=== PATIENT | female | born 1945 | race African-American/Black ===

== ENCOUNTER 2017-10-09 11:58 | Inpatient (IN) | payer MEDICARE, OTHER ==
[2017-10-09] VITALS (8 sets, daily range): BP systolic 175–210; BP diastolic 83–99; PULSE 95–117; RESP 12–16; TEMP 99–99.1; O2SAT 93–100
[~2017-10-09] VITALS: Ht 177.8 cm; Wt 95.5 kg
[2017-10-09] MEDS ORDERED: SODIUM CHLOR 0.9% 1000 ML INJ 1,000 ML IV SCH (12:10)
[2017-10-09] MEDS ORDERED: METOCLOPRAMIDE HCL 10 MG/2 ML VIAL IV PUSH ONE (12:15)
[2017-10-09] MEDS ORDERED: MORPHINE SULFATE 4 MG/ML INJ IV PUSH ONE (12:15)
--- NOTE | 2017-10-09 12:21 | PD ---
HPI Chief Complaint: Abdominal Pain Time Seen by Provider: 12:05 Travel History International Travel<30 days: No Contact w/Intl Traveler<30days: No Traveled to known affect area: No History of Present Illness HPI 72-year-old female that presents to the ED for evaluation of abdominal pain. Per patient she has had this for about a week now. Per patient she feels like she has to go to the bathroom but she has not been able to get anything out for the past week. She is supposed to be on blood pressure medication but is not secondary to having lost her insurance and being changed with different insurance with any doctor. She does not know what she is to take them. She did have a colonoscopy about a year ago with no abnormal findings. She is has never had surgeries. She denies any trauma to the abdomen. Per patient she is even passing gas. She states the pain is 6 out of 10 especially in the lower abdomen is very tender to touch. She comes here because nothing has worked. Per patient she did try an enema about a week ago but has not taken anything since. No chest pain or shortness of breath. No urinary or bowel movement issues. PFSH Past Medical History Hypertension: Yes Past Surgical History Surgical History: No Previous Surgery Social History Alcohol Use: No Tobacco Use: No Substance Use: No Allergies-Medications (Allergen,Severity, Reaction): Coded Allergies: No Known Allergies (Verified Allergy, Unknown, 10/09/17) Reported Meds & Prescriptions Reported Meds & Active Scripts Active No Active Prescriptions or Reported Medications Review of Systems Except as stated in HPI: all other systems reviewed are Neg Physical Exam Narrative GENERAL: SKIN: Warm and dry. HEAD: Atraumatic. Normocephalic. EYES: Pupils equal and round. No scleral icterus. No injection or drainage. ENT: No nasal bleeding or discharge. Mucous membranes pink and moist. Tongue is midline. No uvula deviation. NECK: Trachea midline. No JVD. CARDIOVASCULAR: Regular rate and rhythm. No murmurs, S3, S4. RESPIRATORY: No accessory muscle use. Clear to auscultation. Breath sounds equal bilaterally. GASTROINTESTINAL: Abdomen soft, patient has significant abdominal pain on the lower abdomen bilaterally, nondistended. Hepatic and splenic margins not palpable. MUSCULOSKELETAL: Extremities without clubbing, cyanosis, or edema. No obvious deformities. Full range of motion of the upper and lower extremities bilaterally. 2+ pulses bilaterally. NEUROLOGICAL: Awake and alert. No obvious cranial nerve deficits. Motor grossly within normal limits. Five out of 5 muscle strength in the arms and legs. Normal speech. PSYCHIATRIC: Appropriate mood and affect; insight and judgment normal. Data Data Last Documented VS Vital Signs Date Time Temp Pulse Resp B/P (MAP) Pulse Ox O2 Delivery O2 Flow Rate FiO2 10/09/17 16:10 100 16 183/83 (116) Room Air 10/09/17 12:36 97 10/09/17 12:00 99.0 Orders Orders Complete Blood Count With Diff (10/09/17 12:10) Comprehensive Metabolic Panel (10/09/17 12:10) Lipase (10/09/17 12:10) Lactic Acid (10/09/17 12:10) Urinalysis - C+S If Indicated (10/09/17 12:10) Ct Abd/Pel W Iv Contrast(Rout) (10/09/17 12:10) Iv Access Insert/Monitor (10/09/17 12:10) Ecg Monitoring (10/09/17 12:10) Sodium Chlor 0.9% 1000 Ml Inj (Ns 1000 M (10/09/17 12:10) Electrocardiogram (10/09/17 12:10) Morphine Inj (Morphine Inj) (10/09/17 12:15) Metoclopramide Inj (Reglan Inj) (10/09/17 12:15) Sodium Chlor 0.9% 1000 Ml Inj (Ns 1000 M (10/09/17 13:15) Labetalol Inj (Trandate Inj) (10/09/17 13:30) Iohexol 350 Inj (Omnipaque 350 Inj) (10/09/17 15:11) Admit To Inpatient (10/09/17 ) Vital Signs (Adult) Q4H (10/09/17 16:09) Activity Oob Ad Maty (10/09/17 16:09) Diet Heart Healthy (10/09/17 Dinner) Sodium Chloride 0.9% Flush (Ns Flush) (10/09/17 16:15) Sodium Chloride 0.9% Flush (Ns Flush) (10/09/17 21:00) Basic Metabolic Panel (Bmp) (10/10/17 06:00) Complete Blood Count With Diff (10/10/17 06:00) Heparin Inj (Heparin Inj) (10/09/17 17:00) Naloxone Inj (Narcan Inj) (10/09/17 16:15) Magnesium Hydroxide Liq (Milk Of Magnesi (10/09/17 16:15) Sennosides (Senokot) (10/09/17 16:15) Bisacodyl Supp (Dulcolax Supp) (10/09/17 16:15) Lactulose Liq (Lactulose Liq) (10/09/17 16:15) Inpatient Certification (10/09/17 ) Labetalol Inj (Trandate Inj) (10/09/17 16:15) Clonidine (Catapres) (10/09/17 16:15) Amlodipine (Norvasc) (10/09/17 16:15) Consult Medical Oncology (10/09/17 ) Lactulose Liq (Lactulose Liq) (10/09/17 16:15) Admit Order (Ed Use Only) (10/09/17 16:16) Labs Laboratory Tests Test 10/09/17 12:24 10/09/17 12:30 10/09/17 14:20 White Blood Count 13.7 TH/MM3 Red Blood Count 4.30 MIL/MM3 Hemoglobin 8.0 GM/DL Hematocrit 26.6 % Mean Corpuscular Volume 61.9 FL Mean Corpuscular Hemoglobin 18.7 PG Mean Corpuscular Hemoglobin Concent 30.2 % Red Cell Distribution Width 21.2 % Platelet Count 542 TH/MM3 Mean Platelet Volume 8.0 FL Neutrophils (%) (Auto) 79.9 % Lymphocytes (%) (Auto) 11.7 % Monocytes (%) (Auto) 7.5 % Eosinophils (%) (Auto) 0.2 % Basophils (%) (Auto) 0.7 % Neutrophils # (Auto) 10.9 TH/MM3 Lymphocytes # (Auto) 1.6 TH/MM3 Monocytes # (Auto) 1.0 TH/MM3 Eosinophils # (Auto) 0.0 TH/MM3 Basophils # (Auto) 0.1 TH/MM3 CBC Comment DIFF FINAL Differential Comment Blood Urea Nitrogen 12 MG/DL Creatinine 1.25 MG/DL Random Glucose 115 MG/DL Total Protein 8.5 GM/DL Albumin 2.8 GM/DL Calcium Level 9.4 MG/DL Alkaline Phosphatase 71 U/L Aspartate Amino Transf (AST/SGOT) 66 U/L Alanine Aminotransferase (ALT/SGPT) 22 U/L Total Bilirubin 0.7 MG/DL Sodium Level 138 MEQ/L Potassium Level 4.4 MEQ/L Chloride Level 101 MEQ/L Carbon Dioxide Level 22.9 MEQ/L Anion Gap 14 MEQ/L Estimat Glomerular Filtration Rate 51 ML/MIN Lipase 139 U/L Lactic Acid Level 2.8 mmol/L Urine Color YELLOW Urine Turbidity HAZY Urine pH 6.0 Urine Specific [place] 1.004 Urine Protein NEG mg/dL Urine Glucose (UA) NEG mg/dL Urine Ketones NEG mg/dL Urine Occult Blood LARGE Urine Nitrite NEG Urine Bilirubin NEG Urine Urobilinogen LESS THAN 2 mg/dL Urine Leukocyte Esterase TRACE Urine RBC 15 /hpf Urine WBC 3 /hpf Urine Squamous Epithelial Cells 1 /hpf Urine Bacteria OCC /hpf Urine Mucus FEW /lpf Microscopic Urinalysis Comment CULT NOT INDICATED MDM Medical Decision Making Medical Screen Exam Complete: Yes Emergency Medical Condition: Yes Medical Record Reviewed: Yes Interpretation(s) CBC & BMP Diagram 10/09/17 12:24 Total Protein 8.5 H, Albumin 2.8 L, Calcium Level 9.4, Alkaline Phosphatase 71, Aspartate Amino Transf (AST/SGOT) 66 H, Alanine Aminotransferase (ALT/SGPT) 22, Total Bilirubin 0.7 Last Impressions Abdomen/Pelvis CT 10/09/17 1210 Signed Impressions: CONCLUSION: 1. 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 Questionable bony metastasis lower tho racic spine. 2. Mild bilateral hydronephrosis likely related to the pelvic mass. There is s ome free fluid in the pelvis. Differential Diagnosis Acute abdomen versus abdominal pain versus constipation versus impaction versus diverticulitis Narrative Course 72-year-old female that presents to the ED for evaluation of abdominal pain. Patient was properly examined and was found to have signs and symptoms consistent with abdominal pain. Labs and imaging order. Patient was given IV pain medications and fluids. Labs and imaging showed what appears to be a significant mass to her abdomen. Likely unfortunately malignant with likely metastasis to the liver and other organs from what the CT scan reads. She does have a UTI. At this time my attending Dr. Morrell evaluated the patient and recommends admission. My attending and myself spoke with the patient in length about the possible diagnosis and need for further management and treatment. I spoke with Dr. Dean who agrees to admission for further evaluation. Diagnosis Primary Impression: Pelvic mass Additional Impression: UTI (urinary tract infection) Qualified Codes: N30.00 - Acute cystitis without hematuria Admitting Information Admitting Physician Requests: Admit Scripts No Active Prescriptions or Reported Meds Brennan Brownlee Oct 09, 2017 12:21
[2017-10-09 12:41] LABS: AUTOMATED NEUTROPHIL # 10.9 TH/MM3 (1.8-7.7); BASOPHIL # 0.1 TH/MM3 (0-0.2); BASOPHIL % 0.7 % (0.0-2.0); EOSINOPHIL % 0.2 % (0.0-4.0); HEMATOCRIT 26.6 % (35.0-46.0); LYMPH % 11.7 % (9.0-44.0); LYMPHOCYTE # 1.6 TH/MM3 (1.0-4.8); MEAN CELL VOLUME 61.9 FL (80.0-100.0); MEAN CORPUSCULAR HEMOGLOBIN 18.7 PG (27.0-34.0); MEAN CORPUSCULAR HGB CONC 30.2 % (32.0-36.0); MONO % 7.5 % (0.0-8.0); NEUT % 79.9 % (16.0-70.0); PLATELET COUNT 542 TH/MM3 (150-450); RED CELL DISTRIBUTION WIDTH 21.2 % (11.6-17.2); WHITE BLOOD COUNT 13.7 TH/MM3 (4.0-11.0)
[2017-10-09 12:58] LABS: ALBUMIN 2.8 GM/DL (3.4-5.0); AST (GOT) 66 U/L (15-37); BICARBONATE 22.9 MEQ/L (21.0-32.0); BLOOD UREA NITROGEN 12 MG/DL (7-18); CALCIUM 9.4 MG/DL (8.5-10.1); CHLORIDE 101 MEQ/L (98-107); CREATININE 1.25 MG/DL (0.50-1.00); GLOMERULAR FILTRATION RATE 51 ML/MIN (>89); GLUCOSE,RANDOM 115 MG/DL (74-106); SODIUM (NA) 138 MEQ/L (136-145)
[2017-10-09 13:00] LABS: ALT (GPT) 22 U/L (10-53)
[2017-10-09 13:02] LABS: ALKALINE PHOSPHATASE 71 U/L (45-117); TOTAL BILIRUBIN ADULT 0.7 MG/DL (0.2-1.0); TOTAL PROTEIN 8.5 GM/DL (6.4-8.2)
[2017-10-09] MEDS ORDERED: SODIUM CHLOR 0.9% 1000 ML INJ 1,000 ML IV ONE (13:15)
[2017-10-09] MEDS ORDERED: LABETALOL HCL 100 MG/20 ML VIAL IV PUSH ONE (13:30)
[2017-10-09 14:42] LABS: BACTERIA, URINE OCC /hpf; BILIRUBIN, URINE NEG (NEG); BLOOD, URINE LARGE (NEG); GLUCOSE,URINE NEG (NEG); KETONE, URINE NEG (NEG); MUCUS URINE FEW /lpf (OCC); NITRITE,URINE NEG (NEG); SQUAMOUS EPITHELIAL CELL URINE 1 /hpf (0-5); URINE COLOR YELLOW (YELLW/STRAW); URINE LEUKOCYTE ESTERASE TRACE (NEG)
[2017-10-09] MEDS ORDERED: IOHEXOL 350 MG/ML 10 ML VIAL (for RAD DIAG) IVCONTRAST ONE (15:11)
--- NOTE | 2017-10-09 15:26 | RADRPT ---
EXAM DATE: 10/09/2017 3:12 PM EDT AGE/SEX: 72 years / Female INDICATIONS: Lower abdominal pain. CLINICAL DATA: This is the patient's initial encounter. Patient reports that signs and symptoms have been present for 1 week and indicates a pain score of 5/10. MEDICAL/SURGICAL HISTORY: Hypertension. None. ORAL CONTRAST: No oral contrast ingested. RADIATION DOSE: 16.20 CTDI (mGy) COMPARISON: No prior exams available for comparison. TECHNIQUE: Multiple contiguous axial images were obtained through the abdomen and pelvis following b olus infusion of 98 ml Omnipaque 350 (iohexol) nonionic water-soluble contrast as a single exam dos e. No oral contrast ingested. Using automated exposure control and adjustment of the mA and/or kV ac cording to patient size, the radiation dose was kept as low as reasonably achievable to obtain optima l diagnostic quality images. FINDINGS: There is a very large complex pelvic mass measuring up to 18.4 cm AP, 16.6 cm transverse and 22.2 cm cephalocaudad. Origin of the mass is not entirely clear. This could be uterine or ovarian in origin. Finding is worrisome for malignancy. There is a 4.3 cm presumed dilia metastasis in the aortocaval region on image #31. There is a 3.4 cm dilia mass just above the aortic arch location. 5.1 cm mass inferior right lobe liver is most charact eristic of hepatic metastasis. There are also nodules at both lung bases measuring up to 1.7 cm on the right characteristic of meta static disease there is mild bilateral hydronephrosis likely related to the pelvic mass. Spleen and a drenals and pancreas are unremarkable. Possible lytic changes lower thoracic spine that could be rela adair to metastatic disease. CONCLUSION: 1. 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 Que stionable bony metastasis lower thoracic spine. 2. Mild bilateral hydronephrosis likely related to the pelvic mass. There is some free fluid in the pelvis. Electronically signed by: Alberto Ivory MD 10/09/2017 3:25 PM EDT
--- NOTE | 2017-10-09 15:56 | PD ---
Physical Exam Date Seen by Provider: Oct 09, 2017 Time Seen by Provider: 12:30 Narrative I, Dr. Colin, have reviewed the advance practice practitioner's documentation and am in agreement, met with the patient face to face, made the diagnosis, and the medical decision making was done by me. *My assessment and Findings: Patient seen and evaluated with PA, please see PA notes for further details. Patient has been having abdominal pain, bloating, very constipated and cannot make a bowel movement, here because of difficulty making bowel movements, does not even remember when the last time was. On evaluation, abdomen is moderately distended, diffusely tender. She has not been vomiting, denies other issues. Laboratory Tests Test 10/09/17 12:24 10/09/17 12:30 10/09/17 14:20 White Blood Count 13.7 TH/MM3 (4.0-11.0) Hemoglobin 8.0 GM/DL (11.6-15.3) Hematocrit 26.6 % (35.0-46.0) Mean Corpuscular Volume 61.9 FL (80.0-100.0) Mean Corpuscular Hemoglobin 18.7 PG (27.0-34.0) Mean Corpuscular Hemoglobin Concent 30.2 % (32.0-36.0) Red Cell Distribution Width 21.2 % (11.6-17.2) Platelet Count 542 TH/MM3 (150-450) Neutrophils (%) (Auto) 79.9 % (16.0-70.0) Neutrophils # (Auto) 10.9 TH/MM3 (1.8-7.7) Monocytes # (Auto) 1.0 TH/MM3 (0-0.9) Creatinine 1.25 MG/DL (0.50-1.00) Random Glucose 115 MG/DL (74-106) Total Protein 8.5 GM/DL (6.4-8.2) Albumin 2.8 GM/DL (3.4-5.0) Aspartate Amino Transf (AST/SGOT) 66 U/L (15-37) Estimat Glomerular Filtration Rate 51 ML/MIN (>89) Lactic Acid Level 2.8 mmol/L (0.4-2.0) Urine Turbidity HAZY (CLEAR) Urine Occult Blood LARGE (NEG) Urine Leukocyte Esterase TRACE (NEG) Urine RBC 15 /hpf (0-3) Urine Bacteria OCC /hpf (NONE) Urine Mucus FEW /lpf (OCC) Last 24 hours Impressions Abdomen/Pelvis CT 10/09/17 1210 Signed Impressions: CONCLUSION: 1. 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 Questionable bony metastasis lower tho racic spine. 2. Mild bilateral hydronephrosis likely related to the pelvic mass. There is s ome free fluid in the pelvis. Lab work shows that she has elevated white blood cell counts, lactate is elevated, concerning for underlying infection. CAT scan was ordered and instead shows a complex large pelvic mass measuring 22 cm concerning for [employer] malignancy with metastases to liver and lung. It is also obstructing both ureters, causing hydronephrosis bilaterally. At this point, considering the symptoms and findings, plan would be to admit the patient for further workup as well as treatment of pain and UTI. Data Data Last Documented VS Vital Signs Date Time Temp Pulse Resp B/P (MAP) Pulse Ox O2 Delivery O2 Flow Rate FiO2 10/09/17 12:36 104 12 198/89 (125) 97 Room Air 10/09/17 12:00 99.0 Orders Orders Complete Blood Count With Diff (10/09/17 12:10) Comprehensive Metabolic Panel (10/09/17 12:10) Lipase (10/09/17 12:10) Lactic Acid (10/09/17 12:10) Urinalysis - C+S If Indicated (10/09/17 12:10) Ct Abd/Pel W Iv Contrast(Rout) (10/09/17 12:10) Iv Access Insert/Monitor (10/09/17 12:10) Ecg Monitoring (10/09/17 12:10) Sodium Chlor 0.9% 1000 Ml Inj (Ns 1000 M (10/09/17 12:10) Electrocardiogram (10/09/17 12:10) Morphine Inj (Morphine Inj) (10/09/17 12:15) Metoclopramide Inj (Reglan Inj) (10/09/17 12:15) Sodium Chlor 0.9% 1000 Ml Inj (Ns 1000 M (10/09/17 13:15) Labetalol Inj (Trandate Inj) (10/09/17 13:30) Iohexol 350 Inj (Omnipaque 350 Inj) (10/09/17 15:11) Labs Laboratory Tests Test 10/09/17 12:24 10/09/17 12:30 10/09/17 14:20 White Blood Count 13.7 TH/MM3 Red Blood Count 4.30 MIL/MM3 Hemoglobin 8.0 GM/DL Hematocrit 26.6 % Mean Corpuscular Volume 61.9 FL Mean Corpuscular Hemoglobin 18.7 PG Mean Corpuscular Hemoglobin Concent 30.2 % Red Cell Distribution Width 21.2 % Platelet Count 542 TH/MM3 Mean Platelet Volume 8.0 FL Neutrophils (%) (Auto) 79.9 % Lymphocytes (%) (Auto) 11.7 % Monocytes (%) (Auto) 7.5 % Eosinophils (%) (Auto) 0.2 % Basophils (%) (Auto) 0.7 % Neutrophils # (Auto) 10.9 TH/MM3 Lymphocytes # (Auto) 1.6 TH/MM3 Monocytes # (Auto) 1.0 TH/MM3 Eosinophils # (Auto) 0.0 TH/MM3 Basophils # (Auto) 0.1 TH/MM3 CBC Comment DIFF FINAL Differential Comment Blood Urea Nitrogen 12 MG/DL Creatinine 1.25 MG/DL Random Glucose 115 MG/DL Total Protein 8.5 GM/DL Albumin 2.8 GM/DL Calcium Level 9.4 MG/DL Alkaline Phosphatase 71 U/L Aspartate Amino Transf (AST/SGOT) 66 U/L Alanine Aminotransferase (ALT/SGPT) 22 U/L Total Bilirubin 0.7 MG/DL Sodium Level 138 MEQ/L Potassium Level 4.4 MEQ/L Chloride Level 101 MEQ/L Carbon Dioxide Level 22.9 MEQ/L Anion Gap 14 MEQ/L Estimat Glomerular Filtration Rate 51 ML/MIN Lipase 139 U/L Lactic Acid Level 2.8 mmol/L Urine Color YELLOW Urine Turbidity HAZY Urine pH 6.0 Urine Specific [place] 1.004 Urine Protein NEG mg/dL Urine Glucose (UA) NEG mg/dL Urine Ketones NEG mg/dL Urine Occult Blood LARGE Urine Nitrite NEG Urine Bilirubin NEG Urine Urobilinogen LESS THAN 2 mg/dL Urine Leukocyte Esterase TRACE Urine RBC 15 /hpf Urine WBC 3 /hpf Urine Squamous Epithelial Cells 1 /hpf Urine Bacteria OCC /hpf Urine Mucus FEW /lpf Microscopic Urinalysis Comment CULT NOT INDICATED MDM Medical Record Reviewed: Yes Supervised Visit with JUAN CARLOS: Yes Diagnosis Primary Impression: Pelvic mass Additional Impressions: UTI (urinary tract infection) Leukocytosis Admitting Information Admitting Physician Requests: Admit Scripts No Active Prescriptions or Reported Meds Afsaneh Colin MD Oct 09, 2017 15:56
[2017-10-09] MEDS ORDERED: MAGNESIUM HYDROXIDE SUSP 30 ML CUP PO PRN (16:15)
[2017-10-09] MEDS ORDERED: SODIUM CHLORIDE 0.9% FLUSH 10 ML FLUSH IV FLUSH PRN (16:15)
[2017-10-09] MEDS ORDERED: LABETALOL HCL 100 MG/20 ML VIAL IV PUSH PRN (16:15)
[2017-10-09] MEDS ORDERED: BISACODYL 10 MG SUPP RECTAL PRN (16:15)
[2017-10-09] MEDS ORDERED: LACTULOSE SYRUP 20 GM/30 ML CUP PO PRN (16:15)
[2017-10-09] MEDS ORDERED: SENNOSIDES 8.6 MG TAB PO PRN (16:15)
[2017-10-09] MEDS ORDERED: NALOXONE HCL 0.4 MG/ML AMP IV PUSH PRN (16:15)
[2017-10-09] MEDS ORDERED: ACETAMINOPHEN/HYDROcodone 325 MG/5 MG TAB PO PRN (16:45)
[2017-10-09] MEDS ORDERED: MORPHINE SULFATE 4 MG/ML INJ IV PUSH PRN (16:45)
[2017-10-09] MEDS: HEPARIN SODIUM - SQ 10,000 UNITS/ML VIAL SQ SCH (17:11)
[2017-10-09] MEDS: amLODIPine BESYLATE 5 MG TAB PO SCH (17:13)
--- NOTE | 2017-10-09 17:19 | HHI.HP ---
[facility] Service [facility] Primary Care Physician No Primary Care Physician Admission Diagnosis acute mass to the abdomen with mets, hydronephrosis, obstructed GI t Diagnoses: (1) Pelvic mass Diagnosis: Principal (2) Abdominal pain Diagnosis: Principal (3) Hypertensive urgency Diagnosis: Secondary (4) Post-menopausal bleeding Diagnosis: Secondary (5) Leukocytosis Diagnosis: Secondary Chief Complaint: "Pain in my abdomen" Travel History International Travel<30 Days: No Contact w/Intl Traveler <30 Da: No Traveled to Known Affected Are: No Sepsis Criteria SIRS Criteria (2 or more): Heart rate over 90, WBC > 85296, < 4000 or > 10% bands Sepsis Criteria (SIRS+source): Infect source susp/known Severe Sepsis (+one): Lactate >2 History of Present Illness 72-year-old female with PMH significant for HTN who presents to the ED with complaints of constipation, abdominal pain and poor appetite since the beginning of September. Patient is seen and examined in ED with daughter at bedside. Patient reports that the pain is located in her lower abdomen and rates this pain 10/10 describes it as a dull pain that is on and off, movement will make pain worse, nothing makes pain better. She has not tried anything to help alleviate this pain. Reports poor appetite, but has been able to drink with no issues, has not had a BM since September, she is not passing gas either per patient. She has not noticed and abdominal distention or enlargement, denies any weight gain or loss. She has been urinating with no issues, denies dysuria or hematuria. She does report postmenopausal bleeding that has been ongoing, she is unable to states for how long. She endorses night sweats, denies any dizziness, lightheadedness, SOB, cough, or chest pain. She was previously seen by [facility], however the last time she was seen by them was in March of 2017, she was on BP medication then however wanted to try natural remedies therefore discontinued her prescription medications. Review of Systems Except as stated in HPI: all other systems reviewed are Neg Past Family Social History Past Medical History HTN Past Surgical History Denies Reported Medications Reported Meds & Active Scripts Active No Active Prescriptions or Reported Medications Allergies: Coded Allergies: No Known Allergies (Verified Allergy, Unknown, 10/09/17) Family History Patient denies any knowledge of family medical history Social History Denies any tobacco, alcohol, or illicit drug use. Physical Exam Vital Signs Vital Signs Date Time Temp Pulse Resp B/P (MAP) Pulse Ox O2 Delivery O2 Flow Rate FiO2 10/09/17 16:10 100 16 183/83 (116) Room Air 10/09/17 12:36 104 12 198/89 (125) 97 Room Air 10/09/17 12:00 99.0 117 16 210/99 (136) 100 Physical Exam GENERAL: This is a well-nourished, well-developed patient, AA female in no apparent distress. SKIN: No rashes, ecchymoses or lesions. Cool and dry. HEAD: Atraumatic. Normocephalic. No temporal or scalp tenderness. EYES: Pupils equal round and reactive. Extraocular motions intact. No scleral icterus. No injection or drainage. ENT: Nose without bleeding, purulent drainage. Throat without erythema or exudate. Uvula midline. Airway patent. NECK: Trachea midline. No JVD. Supple, nontender. CARDIOVASCULAR: Regular rate and rhythm, no gallops or rubs. 2/6 murmur. RESPIRATORY: Clear to auscultation. Breath sounds equal bilaterally. No wheezes , rales, or rhonchi. GASTROINTESTINAL: Abdomen mildly distended, firm, tender throughout with hypoactive bowel sounds. MUSCULOSKELETAL: Extremities without clubbing, cyanosis, or edema. No joint tenderness, effusion, or edema noted. No calf tenderness. NEUROLOGICAL: Awake and alert, oriented with some forgetfulness. Cranial nerves II through XII grossly intact. Motor and sensory grossly within normal limits. Five out of 5 muscle strength in all muscle groups. Normal speech. Laboratory Laboratory Tests Test 10/09/17 12:24 10/09/17 12:30 10/09/17 14:20 White Blood Count 13.7 Red Blood Count 4.30 Hemoglobin 8.0 Hematocrit 26.6 Mean Corpuscular Volume 61.9 Mean Corpuscular Hemoglobin 18.7 Mean Corpuscular Hemoglobin Concent 30.2 Red Cell Distribution Width 21.2 Platelet Count 542 Mean Platelet Volume 8.0 Neutrophils (%) (Auto) 79.9 Lymphocytes (%) (Auto) 11.7 Monocytes (%) (Auto) 7.5 Eosinophils (%) (Auto) 0.2 Basophils (%) (Auto) 0.7 Neutrophils # (Auto) 10.9 Lymphocytes # (Auto) 1.6 Monocytes # (Auto) 1.0 Eosinophils # (Auto) 0.0 Basophils # (Auto) 0.1 CBC Comment DIFF FINAL Differential Comment Blood Urea Nitrogen 12 Creatinine 1.25 Random Glucose 115 Total Protein 8.5 Albumin 2.8 Calcium Level 9.4 Alkaline Phosphatase 71 Aspartate Amino Transf (AST/SGOT) 66 Alanine Aminotransferase (ALT/SGPT) 22 Total Bilirubin 0.7 Sodium Level 138 Potassium Level 4.4 Chloride Level 101 Carbon Dioxide Level 22.9 Anion Gap 14 Estimat Glomerular Filtration Rate 51 Lipase 139 Lactic Acid Level 2.8 Urine Color YELLOW Urine Turbidity HAZY Urine pH 6.0 Urine Specific [place] 1.004 Urine Protein NEG Urine Glucose (UA) NEG Urine Ketones NEG Urine Occult Blood LARGE Urine Nitrite NEG Urine Bilirubin NEG Urine Urobilinogen LESS THAN 2 Urine Leukocyte Esterase TRACE Urine RBC 15 Urine WBC 3 Urine Squamous Epithelial Cells 1 Urine Bacteria OCC Urine Mucus FEW Microscopic Urinalysis Comment CULT NOT INDICATED Result Diagram: 10/09/17 1224 10/09/17 1224 Imaging Last Impressions Abdomen/Pelvis CT 10/09/17 1210 Signed Impressions: CONCLUSION: 1. 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 Questionable bony metastasis lower tho racic spine. 2. Mild bilateral hydronephrosis likely related to the pelvic mass. There is s ome free fluid in the pelvis. Caprini VTE Risk Assessment Caprini VTE Risk Assessment: Mod/High Risk (score >= 2) Caprini Risk Assessment Model Point Value = 1 Point Value = 2 Point Value = 3 Point Value = 5 Age 41-60 Minor surgery BMI > 25 kg/m2 Swollen legs Varicose veins or History of unexplained or recurrent spontaneous Oral contraceptives or hormone replacement Sepsis (< 1 month) Serious lung disease, including pneumonia (< 1 month) Abnormal pulmonary function Acute myocardial infarction Congestive heart failure (< 1 month) History of inflammatory bowel disease Medical patient at bed rest Age 61-74 Arthroscopic surgery Major open surgery (> 45 min) Laparoscopic surgery (> 45 min) Malignancy Confined to bed (> 72 hours) Immobilizing plaster cast Central venous access Age >= 75 History of VTE Family history of VTE Factor V Leiden Prothrombin 47101A Lupus anticoagulant Anticardiolipin antibodies Elevated serum homocysteine Heparin-induced thrombocytopenia Other congenital or acquired thrombophilia Stroke (< 1 month) Elective arthroplasty Hip, pelvis, or leg fracture Acute spinal cord injury (< 1 month) Prophylaxis Regimen Total Risk Factor Score Risk Level Prophylaxis Regimen 0-1 Low Early ambulation 2 Moderate Order ONE of the following: *Sequential Compression Device (SCD) *Heparin 5000 units SQ BID 3-4 Higher Order ONE of the following medications: *Heparin 5000 units SQ TID *Enoxaparin/Lovenox 40 mg SQ daily (WT < 150 kg, CrCl > 30 mL/min) *Enoxaparin/Lovenox 30 mg SQ daily (WT < 150 kg, CrCl > 10-29 mL/min) *Enoxaparin/Lovenox 30 mg SQ BID (WT < 150 kg, CrCl > 30 mL/min) AND/OR *Sequential Compression Device (SCD) 5 or more Highest Order ONE of the following medications: *Heparin 5000 units SQ TID (Preferred with Epidurals) *Enoxaparin/Lovenox 40 mg SQ daily (WT < 150 kg, CrCl > 30 mL/min) *Enoxaparin/Lovenox 30 mg SQ daily (WT < 150 kg, CrCl > 10-29 mL/min) *Enoxaparin/Lovenox 30 mg SQ BID (WT < 150 kg, CrCl > 30 mL/min) AND *Sequential Compression Device (SCD) Assessment and Plan Assessment and Plan 72--year-old -Scottish female who presents to the emergency department with complaints of abdominal pain and constipation. Pelvic mass Abdominal pain Constipation-likely due to mass size in pelvis Leukocytosis- possibly stress related -CT of the abdomen and pelvis reviewed, large complex pelvic mass measuring 22cm in length characteristic of uterine or ovarian malignancy with retroperitoneal nodule metastasis, liver metastasis and bilateral lung metastasis. Questionable bony metastasis in the lower thoracic spine, mild bilateral hydronephrosis likely related to pelvic mass, some free fluid in the pelvis. - CBC with mild leukocytosis, anemia, CMP with mildly elevated creatinine and lactic acid, recheck in 6hrs - Recheck CBC in the AM - Consult medical oncology for further recommendations, appreciate assistance - Pain management with p.o. [place] and IV Morphine for breakthrough pain - Daily Lactulose Abnormal Creatinine - Mild hydronephrosis noted on abd/pelvis CT, UA negative for culture - Received 2L NS in the ER - Monitor renal function if worse consider nephro consult for nephrostomy tubes - Encourage po intake Microcytic anemia - Likely secondary to chronic postmenopausal bleeding - Check iron studies Hypertension urgency-BP on admission 210/99 - Hx of HTN non-compliant with medications - Patient received Labetalol 5mg IV in ER, BP improved 180's/80's - Start PO Norvasc with first dose now - PRN Clonidine and Labetalol DVT prophylaxis- subq Heparin The exam, history, and the medical decision-making described in the above note were completed with the assistance of the mid-level provider. I reviewed and agree with the findings presented. I attest that I had a [id number] encounter with the patient on the same day, and personally performed and documented my assessment and findings in the medical record. Patient seen and examined. Has not had a normal bowel movement for the past month. Has been having some pellets. GENERAL: Elderly female. GASTROINTESTINAL: Large palpable abdominal mass, tender to palpation. Normal and active bowel sounds. MUSCULOSKELETAL: Extremities without cyanosis, 2+ bilateral lower extremity edema NEURO: Alert & Oriented x4 to person, place, time, situation. Moves all ext x4 PSYCH: Appropriate mood and affect. Plan document as above. Discussed with oncologist, Dr. Justice. Plan for CT- guided biopsy of the pelvic mass and [employer] oncology consult. Pain management. Code Status Full code, discussed with patient and daughter at bedside. Discussed Condition With Dr. Justice and ED physician. Physician Certification 2 Midnight Certification Type: Admission for Inpatient Services Order for Inpatient Services The services are ordered in accordance with Medicare regulations or non- Medicare payer requirements, as applicable. In the case of services not specified as inpatient-only, they are appropriately provided as inpatient services in accordance with the 2-midnight benchmark. Estimated LOS (days): 4 days is the estimated time the patient will need to remain in the hospital, assuming treatment plan goals are met and no additional complications. Post-Hospital Plan: Not yet determined Problem Qualifiers (1) Leukocytosis: Qualified Codes: D72.825 - Bandemia Germain Valle Oct 09, 2017 17:19 Chiara Suero MD Oct 09, 2017 18:21
[2017-10-09] MEDS: ACETAMINOPHEN/HYDROcodone 325 MG/7.5 MG TAB PO PRN (18:39)
[2017-10-09] MEDS: cloNIDine HCL 0.1 MG TAB PO PRN (18:39)
[2017-10-09] MEDS: LACTULOSE SYRUP 20 GM/30 ML CUP PO SCH (18:40)
--- NOTE | 2017-10-09 18:46 | RADRPT ---
EXAM DATE: 10/09/2017 6:23 PM EDT AGE/SEX: 72 years / Female INDICATIONS: Abdominal mass. CLINICAL DATA: This is the patient's initial encounter. Patient reports that signs and symptoms have been present for 1 day and indicates a pain score of 0/10. MEDICAL/SURGICAL HISTORY: Hypertension. None. RADIATION DOSE: 11.05 CTDI (mGy) COMPARISON: No prior exams available for comparison. TECHNIQUE: Multiple contiguous axial images were obtained through the chest without contrast. Image s were obtained in suspended respiration using multiple row detector helical technique. Using automa adair exposure control and adjustment of the mA and/or kV according to patient size, radiation dose was kept as low as reasonably achievable to obtain optimal diagnostic quality images. FINDINGS: There are numerous bilateral pulmonary nodules characteristic of pulmonary parenchymal metastatic dis ease. Nodules range from subcentimeter in size to 1.6 cm in the lingula and right middle lobe. No pat hologically enlarged lymph nodes are identified in the mediastinum. There is some faint lucencies in the thoracic spine inferiorly which are indeterminate for metastatic disease. See abdomen CT for find ings below the diaphragm. Note is made of bilateral hydronephrosis, moderate on the right and mild on the left. CONCLUSION: 1. Pulmonary parenchymal metastatic disease. No adenopathy or effusion. Electronically signed by: Alberto Ivory MD 10/09/2017 6:45 PM EDT
--- NOTE | 2017-10-09 18:53 | MB ---
cc: Marcell Justice MD, Richard MD DATE: 10/09/2017 CHIEF COMPLAINT: Large pelvic mass with probable metastatic disease. PATIENT PROFILE: The patient is a 72-year-old black female. She is single. She was on 2 previous occasions. She states that she is from her . She was born in [place], [place] and has lived in [place] for at least 40 years. She lives with her daughter. The patient does not work. She is retired. 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 She does not smoke. Alcohol consists of a rare glass of wine. HISTORY OF PRESENT ILLNESS: The patient is a 72-year-old female who has had hypertension. She has not seen a physician in quite a while. She did have a colonoscopy approximately a year ago. She does not remember who performed this, but she was told it was normal. She was well until the past 2-3 months when she developed discomfort in the lower abdominal and pelvic area. It became increasingly difficult for her to have bowel movements. The pain worsened. She lost her appetite and she lost an undefined amount of weight. Her daughter encouraged her to go to the emergency room and finally, because of the severity of the pain, she went to the emergency room today. She had a CT scan of the abdomen and pelvis performed with IV contrast today. The images were reviewed and are very telling. She has a large complex pelvic mass measuring up to 18.4 x 16.6 x 22 cm. The origin of the mass is unclear with possibilities being uterine or ovarian. There is a 4.3 cm presumed dilia metastases in the aortocaval region. There is a 3.4 cm dilia mass above the aortic bifurcation. There is a 5.1 cm mass involving the inferior right lobe of the liver, most characteristic of metastatic disease. There are also several nodules at the lung base with the largest measuring 1.7 cm. There is mild bilateral hydronephrosis. Other studies include a hemoglobin of 8, white count of 13,000, platelet count of 542,000. The RBC number is 4.3 and MCV is 61. A CMP on 10/09, creatinine 1.25, BUN 12, estimated GFR 51. Liver function tests normal, except for slight elevation of the AST to 66, total protein 8.5. PAST SURGICAL HISTORY: No previous surgeries. PAST MEDICAL HISTORY: Hypertension. MEDICATIONS PRIOR TO ADMISSION: None except for the use of laxatives. ALLERGIES: NONE. FAMILY HISTORY: Mother . Father of dementia at age 84. The patient has 2 brothers are living. Her sister is living. She has 3 daughters and 1 son. There is no history of uterine cancer or ovarian cancer. REVIEW OF SYSTEMS: VISION: She has glasses. There has been no change in her vision. Hearing is fine. CARDIOVASCULAR: No chest pain, palpitations. RESPIRATORY: No shortness of breath, cough. GASTROINTESTINAL: Notable for abdominal pain, constipation, weight loss, anorexia. There has been no blood in the stool. GENITOURINARY: Mild vaginal bleeding over the past month. MUSCULOSKELETAL: No bone pain. NEUROLOGIC: No focal weakness. SKIN: No problems. PSYCHIATRIC: No psychiatric problems. PHYSICAL EXAMINATION: GENERAL: Reveals a frightened female who appears uncomfortable. VITAL SIGNS: Blood pressure is 185/86, respiratory rate 16, pulse is 100. She is afebrile. O2 saturation on room air is 100%. HEENT: Head is normocephalic. Sclerae and conjunctivae are normal. Oropharynx is unremarkable. LYMPHS: There is no cervical, supraclavicular, axillary or inguinal adenopathy. BREASTS: Without masses. HEART: Regular rhythm. LUNGS: Clear, without rales, wheezes, or rhonchi. ABDOMEN: Markedly abnormal. There is a mass arising from the pelvis extending into the upper abdomen. It is firm, tender, huge and occupies most of the mid abdominal cavity and the entire pelvic region. EXTREMITIES: +1 edema with some mild stasis changes. MUSCULOSKELETAL: No bone pain. NEUROLOGIC: No weakness. SKIN: Normal. ASSESSMENT: The patient is a 72-year-old female who has a huge mass arising from the pelvis extending into the upper abdomen with what appears to be metastatic disease to the liver, pulmonary metastases, and dilia metastases. She had a colonoscopy a year ago. This is not the typical picture for ovarian cancer. 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 PLAN: 1. CT of the thorax without contrast. 2. CEA, CA-125. 3. It would be very easy to obtain a core needle biopsy of the abdominal pelvic mass. It is huge and presses up against the abdominal wall. 4. On Wednesday when Dr. Shah, who is a gynecologic oncologist, is back, a consultation will be placed. 5. The situation was reviewed with the patient and her daughter. They asked me if this is a serious problem and whether they should let the family know. I indicated that this is a very serious problem and the patient may want support from family. Orders have been written for CEA, CA-125, CT-guided needle biopsy of the abdominal pelvic mass and CT scan of the thorax without contrast. MD BRET Ta/ , 06:11 PM , 06:50 PM [email or web address]
[2017-10-09] MEDS: SODIUM CHLORIDE 0.9% FLUSH 10 ML FLUSH IV FLUSH SCH (21:27)
[2017-10-10] VITALS (18 sets, daily range): BP systolic 141–189; BP diastolic 76–91; PULSE 84–118; RESP 16–20; TEMP 97.9–99.7; O2SAT 93–100
[2017-10-10] MEDS: HEPARIN SODIUM - SQ 10,000 UNITS/ML VIAL SQ SCH ×3 (01:26→16:30)
[2017-10-10] MEDS: cefTRIAXone INJ 1,000 MG in SODIUM CHLORIDE 0.9% INJ 100 ML IV SCH (01:57)
[2017-10-10 04:09] LABS: AUTOMATED NEUTROPHIL # 10.3 TH/MM3 (1.8-7.7); BASOPHIL % 0.3 % (0.0-2.0); EOSINOPHIL # 0.1 TH/MM3 (0-0.4); EOSINOPHIL % 0.7 % (0.0-4.0); HEMATOCRIT 23.8 % (35.0-46.0); HEMOGLOBIN 7.1 GM/DL (11.6-15.3); LYMPH % 10.7 % (9.0-44.0); LYMPHOCYTE # 1.4 TH/MM3 (1.0-4.8); MEAN CORPUSCULAR HEMOGLOBIN 18.4 PG (27.0-34.0); MEAN PLATELET VOLUME 8.9 FL (7.0-11.0); MONO % 8.1 % (0.0-8.0); NEUT % 80.2 % (16.0-70.0); PLATELET COUNT 502 TH/MM3 (150-450); RED BLOOD COUNT 3.84 MIL/MM3 (4.00-5.30); RED CELL DISTRIBUTION WIDTH 21.5 % (11.6-17.2); WHITE BLOOD COUNT 12.8 TH/MM3 (4.0-11.0)
[2017-10-10 04:16] LABS: MEAN CORPUSCULAR HGB CONC 29.6 % (32.0-36.0)
[2017-10-10 04:28] LABS: CARCINOEMBRYONIC ANTIGEN 0.8 NG/ML (0.2-5.0)
[2017-10-10] MEDS: ACETAMINOPHEN/HYDROcodone 325 MG/7.5 MG TAB PO PRN ×2 (04:56→11:42)
[2017-10-10 05:05] LABS: CA 125 170.2 U/ML (0.0-30.2)
[2017-10-10 05:21] LABS: % SATURATION IRON PROFILE 6.6 % (20-50); BLOOD UREA NITROGEN 11 MG/DL (7-18); CALCIUM 8.3 MG/DL (8.5-10.1); CHLORIDE 104 MEQ/L (98-107); CREATININE 1.18 MG/DL (0.50-1.00); GLOMERULAR FILTRATION RATE 54 ML/MIN (>89); GLUCOSE,RANDOM 102 MG/DL (74-106); IRON (FE) 18 MCG/DL (50-170); SODIUM (NA) 140 MEQ/L (136-145); TOTAL IRON BINDING CAPACITY 272 MCG/DL (250-450)
[2017-10-10] MEDS ORDERED: diphenhydrAMINE HCL 25 MG CAP PO PRN (07:45)
[2017-10-10] MEDS ORDERED: SODIUM CHLOR 0.9% 250 ML INJ 250 ML IV ONE (08:00)
[2017-10-10] MEDS: LACTULOSE SYRUP 20 GM/30 ML CUP PO SCH (08:09)
[2017-10-10] MEDS: amLODIPine BESYLATE 5 MG TAB PO SCH (08:09)
--- NOTE | 2017-10-10 08:29 | PD.ONC.PN ---
Subjective Subjective Remarks T-max 99.7 overnight Patient reports she overall feels much better Currently denies pain She does endorse that she has had some vaginal bleeding over the last several months Denies any blood in her stool Objective Data Date Time Temp Pulse Resp B/P (MAP) Pulse Ox O2 Delivery O2 Flow Rate FiO2 10/10/17 07:00 110 10/10/17 04:53 99.7 98 17 164/85 (111) 97 10/10/17 04:00 92 10/10/17 01:25 169/81 (110) 10/10/17 00:15 99.3 97 16 172/79 (110) 93 10/10/17 00:00 94 10/09/17 21:14 99.1 96 16 175/85 (115) 93 10/09/17 20:00 95 10/09/17 17:26 100 16 185/86 (119) 100 Room Air 10/09/17 17:16 90 185/86 (119) 100 10/09/17 16:10 100 16 183/83 (116) Room Air 10/09/17 15:30 95 15 183/85 (117) 96 Room Air 10/09/17 12:36 104 12 198/89 (125) 97 Room Air 10/09/17 12:00 99.0 117 16 210/99 (136) 100 10/10/17 10/10/17 10/10/17 07:00 15:00 23:00 Intake Total 340 ml Balance 340 ml Result Diagram: 10/10/17 0308 10/10/17 0308 Laboratory Results Laboratory Tests Test 10/09/17 12:24 10/09/17 12:30 10/09/17 14:20 10/09/17 20:42 White Blood Count 13.7 TH/MM3 Red Blood Count 4.30 MIL/MM3 Hemoglobin 8.0 GM/DL Hematocrit 26.6 % Mean Corpuscular Volume 61.9 FL Mean Corpuscular Hemoglobin 18.7 PG Mean Corpuscular Hemoglobin Concent 30.2 % Red Cell Distribution Width 21.2 % Platelet Count 542 TH/MM3 Mean Platelet Volume 8.0 FL Neutrophils (%) (Auto) 79.9 % Lymphocytes (%) (Auto) 11.7 % Monocytes (%) (Auto) 7.5 % Eosinophils (%) (Auto) 0.2 % Basophils (%) (Auto) 0.7 % Neutrophils # (Auto) 10.9 TH/MM3 Lymphocytes # (Auto) 1.6 TH/MM3 Monocytes # (Auto) 1.0 TH/MM3 Eosinophils # (Auto) 0.0 TH/MM3 Basophils # (Auto) 0.1 TH/MM3 CBC Comment DIFF FINAL Differential Comment Blood Urea Nitrogen 12 MG/DL Creatinine 1.25 MG/DL Random Glucose 115 MG/DL Total Protein 8.5 GM/DL Albumin 2.8 GM/DL Calcium Level 9.4 MG/DL Alkaline Phosphatase 71 U/L Aspartate Amino Transf (AST/SGOT) 66 U/L Alanine Aminotransferase (ALT/SGPT) 22 U/L Total Bilirubin 0.7 MG/DL Sodium Level 138 MEQ/L Potassium Level 4.4 MEQ/L Chloride Level 101 MEQ/L Carbon Dioxide Level 22.9 MEQ/L Anion Gap 14 MEQ/L Estimat Glomerular Filtration Rate 51 ML/MIN Lipase 139 U/L Lactic Acid Level 2.8 mmol/L 2.0 mmol/L Urine Color YELLOW Urine Turbidity HAZY Urine pH 6.0 Urine Specific [place] 1.004 Urine Protein NEG mg/dL Urine Glucose (UA) NEG mg/dL Urine Ketones NEG mg/dL Urine Occult Blood LARGE Urine Nitrite NEG Urine Bilirubin NEG Urine Urobilinogen LESS THAN 2 mg/dL Urine Leukocyte Esterase TRACE Urine RBC 15 /hpf Urine WBC 3 /hpf Urine Squamous Epithelial Cells 1 /hpf Urine Bacteria OCC /hpf Urine Mucus FEW /lpf Microscopic Urinalysis Comment CULT NOT INDICATED Test 10/10/17 03:08 White Blood Count 12.8 TH/MM3 Red Blood Count 3.84 MIL/MM3 Hemoglobin 7.1 GM/DL Hematocrit 23.8 % Mean Corpuscular Volume 62.0 FL Mean Corpuscular Hemoglobin 18.4 PG Mean Corpuscular Hemoglobin Concent 29.6 % Red Cell Distribution Width 21.5 % Platelet Count 502 TH/MM3 Mean Platelet Volume 8.9 FL Neutrophils (%) (Auto) 80.2 % Lymphocytes (%) (Auto) 10.7 % Monocytes (%) (Auto) 8.1 % Eosinophils (%) (Auto) 0.7 % Basophils (%) (Auto) 0.3 % Neutrophils # (Auto) 10.3 TH/MM3 Lymphocytes # (Auto) 1.4 TH/MM3 Monocytes # (Auto) 1.0 TH/MM3 Eosinophils # (Auto) 0.1 TH/MM3 Basophils # (Auto) 0.0 TH/MM3 CBC Comment DIFF FINAL Differential Comment Blood Urea Nitrogen 11 MG/DL Creatinine 1.18 MG/DL Random Glucose 102 MG/DL Calcium Level 8.3 MG/DL Sodium Level 140 MEQ/L Potassium Level 3.8 MEQ/L Chloride Level 104 MEQ/L Carbon Dioxide Level 24.0 MEQ/L Anion Gap 12 MEQ/L Estimat Glomerular Filtration Rate 54 ML/MIN Iron Level 18 MCG/DL Total Iron Binding Capacity 272 MCG/DL Percent Iron Saturation 6.6 % Carcinoembryonic Antigen 0.8 NG/ML CA 125 Antigen 170.2 U/ML Culture Results Microbiology Date/Time Source Procedure Growth Status 10/10/17 01:32 Blood Peripheral Aerobic Blood Culture Pending Received 10/10/17 01:32 Blood Peripheral Anaerobic Blood Culture Pending Received 10/10/17 01:25 Blood Peripheral Aerobic Blood Culture Pending Received 10/10/17 01:25 Blood Peripheral Anaerobic Blood Culture Pending Received Imaging Studies Last 24 hours Impressions Abdomen/Pelvis CT 10/09/17 1210 Signed Impressions: CONCLUSION: 1. 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 Questionable bony metastasis lower tho racic spine. 2. Mild bilateral hydronephrosis likely related to the pelvic mass. There is s ome free fluid in the pelvis. Administered Medications Medications (Trade) Dose Ordered Sig/Ho Route PRN Reason Start Time Stop Time Status Last Admin Dose Admin Sodium Chloride (NS Flush) 2 ml BID IV FLUSH 10/09/17 21:00 10/09/17 21:27 Heparin Sodium (Porcine) (Heparin Inj) 5,000 units Q8H SQ 10/09/17 17:00 10/10/17 08:10 Clonidine (Catapres) 0.1 mg Q6H PRN PO SBP> OR = 180, DBP> OR = 100 10/09/17 16:15 10/09/17 18:39 Amlodipine Besylate (Norvasc) 5 mg DAILY PO 10/09/17 16:15 10/10/17 08:09 Lactulose (Lactulose Liq) 30 ml DAILY PO 10/09/17 16:15 10/10/17 08:09 Acetaminophen/ Hydrocodone Bitart (Severn 7.5-325 Mg) 1 tab Q4H PRN PO PAIN SCALE 6 TO 10 10/09/17 16:45 10/10/17 04:56 Morphine Sulfate (Morphine Inj) 2 mg Q3H PRN IV PUSH Pain 3-5; if unable to take PO 10/09/17 16:45 10/09/17 17:13 Ceftriaxone Sodium 1000 mg/ Sodium Chloride 100 ml @ 200 mls/hr Q24H IV 10/10/17 01:00 10/10/17 01:57 Objective Remarks GENERAL: Older pleasant female sitting up in bed in no obvious distress SKIN: Warm and dry. HEAD: Normocephalic. EYES: No scleral icterus. No injection or drainage. NECK: No JVD or lymphadenopathy. CARDIOVASCULAR: + S1/S2. Tachycardia RESPIRATORY: Breath sounds equal bilaterally. No accessory muscle use. GASTROINTESTINAL: Abdomen somewhat distended. Mildly tender to palpation EXTREMITIES: No cyanosis. Trace edema to bilateral lower extremities MUSCULOSKELETAL: Adequate muscle tone. NEUROLOGICAL: No obvious focal deficit. Awake, alert, and oriented x3. Assessment/Plan Assessment 72-year-old female admitted with abdominal pain and constipation found to have a 22 cm pelvic mass with likely metastatic disease to liver and lung Plan The patient reports that she has had vaginal bleeding over the past several months. Her hemoglobin is down to 7.1 today and she has severe microcytosis. Iron studies are consistent with iron deficiency anemia or thalasemia. As she is tachycardic today I will transfuse patient with 1 unit packed red blood cells. Await serum ferritin. Check stool for Hemoccult for thoroughness. Continue heparin for DVT prophylaxis. Dr. Shah will be consulted in a.m. Attending Statement The exam, history, and the medical decision-making described in the above note were completed with the assistance of the mid-level provider. I reviewed and agree with the findings presented. I attest that I had a [id number] encounter with the patient on the same day, and personally performed and documented my assessment and findings in the medical record. The CAT scan of the thorax is reviewed. 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 Await a biopsy of the mass. At this point we will place a consultation with Dr. Shah. The iron studies do not support iron deficiency anemia with an elevated serum ferritin. I believe that she has thalassemia and in addition has anemia of chronic disease. At this point would simply transfuse as needed. Situation discussed with patient and her daughter. Christy Thurman Oct 10, 2017 08:29 Marcell Justice MD Oct 10, 2017 15:08
[2017-10-10] MEDS: SODIUM CHLORIDE 0.9% FLUSH 10 ML FLUSH IV FLUSH SCH ×2 (09:00→20:12)
[2017-10-10] MEDS ORDERED: ONDANSETRON HCL 4 MG/2 ML VIAL IV PUSH PRN (09:45)
[2017-10-10] MEDS ORDERED: IRON SUCROSE INJ 200 MG in SODIUM CHLORIDE 0.9% INJ 100 ML IV SCH (10:00)
[2017-10-10] MEDS: cloNIDine HCL 0.1 MG TAB PO PRN (11:40)
--- NOTE | 2017-10-10 13:38 | HHI.PR ---
Subjective Remarks Patient has some nausea today. No other new complaints. Hemoglobin dropped to 7.1 this morning. Blood transfusion is ordered. She does have improvement in her blood pressure and her acute kidney injury. Objective Vital Signs Date Time Temp Pulse Resp B/P (MAP) Pulse Ox O2 Delivery O2 Flow Rate FiO2 10/10/17 13:15 151/86 (107) 10/10/17 12:00 98.9 110 20 181/83 (115) 95 10/10/17 11:00 100 10/10/17 09:30 166/83 (110) 10/10/17 08:00 98.8 118 20 189/91 (123) 94 10/10/17 07:00 110 10/10/17 04:53 99.7 98 17 164/85 (111) 97 10/10/17 04:00 92 10/10/17 01:25 169/81 (110) 10/10/17 00:15 99.3 97 16 172/79 (110) 93 10/10/17 00:00 94 10/09/17 21:14 99.1 96 16 175/85 (115) 93 10/09/17 20:00 95 10/09/17 17:26 100 16 185/86 (119) 100 Room Air 10/09/17 17:16 90 185/86 (119) 100 10/09/17 16:10 100 16 183/83 (116) Room Air 10/09/17 15:30 95 15 183/85 (117) 96 Room Air I/O 10/09/17 10/09/17 10/09/17 10/10/17 10/10/17 10/10/17 07:00 15:00 23:00 07:00 15:00 23:00 Intake Total 340 ml Balance 340 ml Intake Oral 240 ml IV Total 100 ml # Voids 2 # Bowel Movements 1 Result Diagram: 10/10/17 0308 10/10/17 0308 Objective Remarks GENERAL: NAD, A&Ox3 HEAD: Normocephalic. NECK: Supple, trachea midline. No lymphadenopathy. EYES: No scleral icterus. No injection or drainage. CARDIOVASCULAR: Regular rate and rhythm without murmurs, gallops, or rubs. RESPIRATORY: Breath sounds equal bilaterally. No accessory muscle use. GASTROINTESTINAL: Abdomen soft, non-tender, nondistended. MUSCULOSKELETAL: No cyanosis, or edema. SKIN: Warm and dry. NEURO: No focal neurological deficitis. A/P Problem List: (1) Hypertensive urgency ICD Code: I16.0 - Hypertensive urgency (2) Abdominal pain ICD Code: R10.9 - Unspecified abdominal pain (3) Pelvic mass ICD Code: R19.00 - Intra-abdominal and pelvic swelling, mass and lump, unspecified site Status: Acute (4) UTI (urinary tract infection) ICD Code: N39.0 - Urinary tract infection, site not specified Status: Acute (5) Leukocytosis ICD Code: D72.829 - Elevated white blood cell count, unspecified Status: Acute Assessment and Plan 72--year-old -Algerian female admitted secondary to pelvic mass and bleeding with anemia Acute blood loss anemia Transfuse 1 unit packed red blood cells today Follow hemoglobin level Stool studies pending Pelvic mass Abdominal pain Further workup in process Oncology following Acute kidney injury Hydronephrosis Follow renal function Avoid nephrotoxins Improving thus far Leukocytosis UTI Rocephin Follow CBC Hypertensive urgency Improved Continue p.o. Norvasc Continue as needed clonidine DVT prophylaxis SCDs Anticoagulation avoided due to active bleeding Problem Qualifiers (1) UTI (urinary tract infection): Qualified Codes: N30.00 - Acute cystitis without hematuria (2) Leukocytosis: Qualified Codes: D72.825 - Bandemia Paramjit Lanza MD Oct 10, 2017 13:38
--- NOTE | 2017-10-10 13:49 | EKG ---
Date Performed: 10/09/2017 Time Performed: 11:18:56 PTAGE: 72 years EKG: SINUS TACHYCARDIA ABNORMAL RHYTHM ECG NO PREVIOUS TRACING DOCTOR: Basil Choi Interpretating Date/Time 10/10/2017 13:45:03
[2017-10-10] MEDS: ACETAMINOPHEN 325 MG TAB PO PRN (16:30)
[2017-10-11] VITALS (12 sets, daily range): BP systolic 128–177; BP diastolic 66–86; PULSE 85–110; RESP 16–22; TEMP 98.6–101.5; O2SAT 92–100
[2017-10-11] MEDS: cefTRIAXone INJ 1,000 MG in SODIUM CHLORIDE 0.9% INJ 100 ML IV SCH (00:20)
[2017-10-11] MEDS: HEPARIN SODIUM - SQ 10,000 UNITS/ML VIAL SQ SCH (00:23)
[2017-10-11] MEDS: ACETAMINOPHEN/HYDROcodone 325 MG/7.5 MG TAB PO PRN (02:32)
[2017-10-11 07:07] LABS: ALBUMIN 2.5 GM/DL (3.4-5.0); AST (GOT) 49 U/L (15-37); BICARBONATE 24.4 MEQ/L (21.0-32.0); BLOOD UREA NITROGEN 9 MG/DL (7-18); CALCIUM 8.5 MG/DL (8.5-10.1); CHLORIDE 103 MEQ/L (98-107); CREATININE 1.11 MG/DL (0.50-1.00); GLOMERULAR FILTRATION RATE 58 ML/MIN (>89); GLUCOSE,RANDOM 100 MG/DL (74-106); SODIUM (NA) 137 MEQ/L (136-145)
[2017-10-11 07:10] LABS: ALKALINE PHOSPHATASE 61 U/L (45-117); ALT (GPT) 15 U/L (10-53); TOTAL BILIRUBIN ADULT 0.5 MG/DL (0.2-1.0); TOTAL PROTEIN 7.3 GM/DL (6.4-8.2)
[2017-10-11 07:23] LABS: AUTOMATED NEUTROPHIL # 10.3 TH/MM3 (1.8-7.7); BASOPHIL % 0.3 % (0.0-2.0); EOSINOPHIL # 0.1 TH/MM3 (0-0.4); HEMATOCRIT 25.6 % (35.0-46.0); HEMOGLOBIN 7.8 GM/DL (11.6-15.3); LYMPH % 13.3 % (9.0-44.0); LYMPHOCYTE # 1.8 TH/MM3 (1.0-4.8); MEAN CELL VOLUME 64.4 FL (80.0-100.0); MEAN CORPUSCULAR HEMOGLOBIN 19.6 PG (27.0-34.0); MEAN CORPUSCULAR HGB CONC 30.4 % (32.0-36.0); MEAN PLATELET VOLUME 8.2 FL (7.0-11.0); MONO % 7.7 % (0.0-8.0); NEUT % 77.7 % (16.0-70.0); PLATELET COUNT 482 TH/MM3 (150-450); RED BLOOD COUNT 3.97 MIL/MM3 (4.00-5.30); RED CELL DISTRIBUTION WIDTH 23.9 % (11.6-17.2); WHITE BLOOD COUNT 13.2 TH/MM3 (4.0-11.0)
--- NOTE | 2017-10-11 08:24 | PD.CONS ---
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 Justice Reason for Consult large pelvic mass with metastatic disease to lung and liver, possible kartik mets Primary Care Physician No Primary Care Physician Diagnoses: (1) Pelvic mass History of Present Illness This is a very pleasant 72 year old female who was in her normal state of health until recently when she started having abdominal pain. She present to the ER for evaluation. Ms. Villareal reports she has had vaginal bleeding for mant months on and off; It has been many years since her last gynecological exam. CT obtained in ER shown a large aprox 22 cm abdominal/pelvic mass, what appears to be metastatic disease to her liver/lungs and possible kartik mets. She was admitted for further evaluation and management. She is seen in consultation for the above findings with her daughter. Patient reports she has had little vaginal bleeding since admission and her abdominal pain has stopped. She reports no problem with bladder function but has had some constipation. I explained that Dr. Justice ordered CT guided BX of pelvic mass for diagnosis, but in the majority of situations some type of IV chemo is recommended. I explained that even if we did surgery and removed the mass, that chemotherapy would still be recommended because there is metastatic disease on imaging and microscopic disease that we are not seeing on imaging. Patient reports she is not really interested in IV chemotherapy but she does not want to make any decisions at this time until bx resulted. I explained that with diagnosis if she should decline treatment then we could get her assistance with Hospice, because without any treatment her pain and other symptoms are likely related to this cancer are likely. Review of Systems Gastrointestinal: COMPLAINS OF: Abdominal pain, Constipation Genitourinary: COMPLAINS OF: Abnormal vaginal bleeding Except as stated in HPI: all other systems reviewed are Neg Past Family Social History Allergies: Coded Allergies: No Known Allergies (Verified Allergy, Unknown, 10/09/17) Past Medical History hypertension Past Surgical History 4 vaginal births Reported Medications per EMR Active Ordered Medications Current Medications Sodium Chloride 1,000 ml @ 1,000 mls/hr Q1H IV Last administered on 10/09/17at 12:30; Start 10/09/17 at 12:10; Stop 10/09/17 at 13:09; Status DC Morphine Sulfate (Morphine Inj) 4 mg ONCE ONCE IV PUSH Last administered on at 12:30; Start 10/09/17 at 12:15; Stop 10/09/17 at 12:16; Status DC Metoclopramide HCl (Reglan Inj) 5 mg ONCE ONCE IV PUSH Last administered on at 12:28; Start 10/09/17 at 12:15; Stop 10/09/17 at 12:16; Status DC Sodium Chloride 1,000 ml @ 999 mls/hr BOLUS ONCE IV Last administered on 10/09at 13:00; Start 10/09/17 at 13:15; Stop 10/09/17 at 14:15; Status DC Labetalol HCl (Trandate Inj) 5 mg ONCE ONCE IV PUSH Last administered on at 13:40; Start 10/09/17 at 13:30; Stop 10/09/17 at 13:31; Status DC Iohexol (Omnipaque 350 Inj) 98 ml STK-MED ONCE IVCONTRAST Last administered on 10/09/17at 15:11; Start 10/09/17 at 15:11; Stop 10/09/17 at 15:12; Status DC Sodium Chloride (NS Flush) 2 ml UNSCH PRN IV FLUSH FLUSH AFTER USING IV ACCESS ; Start 10/09/17 at 16:15 Sodium Chloride (NS Flush) 2 ml BID IV FLUSH Last administered on 10/10/17at 20: 12; Start 10/09/17 at 21:00 Heparin Sodium (Porcine) (Heparin Inj) 5,000 units Q8H SQ Last administered on 10/11/17at 00:23; Start 10/09/17 at 17:00 Naloxone HCl (Narcan Inj) 0.4 mg UNSCH PRN IV PUSH SEE LABEL COMMENTS; Start at 16:15 Magnesium Hydroxide (Milk Of Magnesia Liq) 30 ml Q12H PRN PO Mild constipation ; Start 10/09/17 at 16:15 Sennosides (Senokot) 17.2 mg Q12H PRN PO Moderate constipation; Start 10/09/17 at 16:15 Bisacodyl (Dulcolax Supp) 10 mg DAILY PRN RECTAL SEVERE CONSITIPATION; Start at 16:15 Lactulose (Lactulose Liq) 30 ml DAILY PRN PO SEVERE CONSITIPATION; Start at 16:15 Labetalol HCl (Trandate Inj) 10 mg Q4H PRN IV PUSH SBP> OR = 180, DBP> OR = 100 ; Start 10/09/17 at 16:15 Clonidine (Catapres) 0.1 mg Q6H PRN PO SBP> OR = 180, DBP> OR = 100 Last administered on 10/10/17at 11:40; Start 10/09/17 at 16:15 Amlodipine Besylate (Norvasc) 5 mg DAILY PO Last administered on 10/10/17at 08: 09; Start 10/09/17 at 16:15 Lactulose (Lactulose Liq) 30 ml DAILY PO Last administered on 10/10/17at 08:09; Start 10/09/17 at 16:15 Acetaminophen/ Hydrocodone Bitart (Hines 5-325 Mg) 1 tab Q4H PRN PO PAIN SCALE 3 TO 5; Start 10/09/17 at 16:45 Acetaminophen/ Hydrocodone Bitart (Hines 7.5-325 Mg) 1 tab Q4H PRN PO PAIN SCALE 6 TO 10 Last administered on 10/11/17at 02:32; Start 10/09/17 at 16:45 Morphine Sulfate (Morphine Inj) 2 mg Q3H PRN IV PUSH Pain 3-5; if unable to take PO Last administered on 10/09/17at 17:13; Start 10/09/17 at 16:45 Ceftriaxone Sodium 1000 mg/ Sodium Chloride 100 ml @ 200 mls/hr Q24H IV Last administered on 10/11/17at 00:20; Start 10/10/17 at 01:00 Sodium Chloride 250 ml @ 15 mls/hr ONCE ONCE IV Last administered on at 16:35; Start 10/10/17 at 08:00; Stop 10/11/17 at 00:39; Status DC Acetaminophen (Tylenol) 650 mg Q4H PRN PO SEE LABEL COMMENTS Last administered on 10/10/17at 16:30; Start 10/10/17 at 07:45; Stop 10/12/17 at 07:44 Diphenhydramine HCl (Benadryl) 25 mg Q4H PRN PO SEE LABEL COMMENTS Last administered on 10/10/17at 16:29; Start 10/10/17 at 07:45; Stop 10/12/17 at 07:44 Iron Sucrose 200 mg/Sodium Chloride 110 ml @ 110 mls/hr DAILY IV Last administered on 10/10/17at 10:00; Start 10/10/17 at 10:00; Stop 10/10/17 at 12:41 ; Status DC Ondansetron HCl (Zofran Inj) 4 mg Q6H PRN IV PUSH Nausea Last administered on at 10:30; Start 10/10/17 at 09:45 Family History Mother . Father of dementia at age 84. The patient has 2 brothers are living. Her sister is living. Social History lives with daughter Physical Exam Vital Signs Vital Signs Date Time Temp Pulse Resp B/P (MAP) Pulse Ox O2 Delivery O2 Flow Rate FiO2 10/11/17 05:14 99.5 95 16 148/77 (100) 95 10/11/17 04:00 85 10/11/17 00:16 99.7 97 16 153/79 (103) 97 10/11/17 00:00 93 10/10/17 20:10 99.2 84 16 141/76 (97) 100 10/10/17 20:00 85 10/10/17 19:30 94 16 151/84 100 10/10/17 16:53 98.1 91 20 152/76 99 10/10/17 16:38 98.5 98 18 159/82 95 10/10/17 16:00 97.9 100 20 153/84 (107) 96 10/10/17 15:00 100 10/10/17 13:15 151/86 (107) 10/10/17 12:00 98.9 110 20 181/83 (115) 95 10/10/17 11:00 100 10/10/17 09:30 166/83 (110) 10/10/17 08:00 98.8 118 20 189/91 (123) 94 Physical Exam GENERAL: This is a well-nourished, well-developed patient, in no apparent distress. SKIN: No rashes, ecchymoses or lesions. Cool and dry. HEAD: Atraumatic. Normocephalic. No temporal or scalp tenderness. EYES: Pupils equal round and reactive. Extraocular motions intact. No scleral icterus. No injection or drainage. NECK: Trachea midline. CARDIOVASCULAR: RRR no MMR RESPIRATORY: Clear to auscultation. Breath sounds equal bilaterally. No wheezes , rales, or rhonchi. GASTROINTESTINAL: Abdomen distended, firm to RLQ, nontender MUSCULOSKELETAL: Extremities without clubbing, cyanosis, or edema. NEUROLOGICAL: Awake and alert. Normal speech. Laboratory Laboratory Tests Test 10/10/17 12:20 10/11/17 05:52 Ferritin 417 White Blood Count 13.2 Red Blood Count 3.97 Hemoglobin 7.8 Hematocrit 25.6 Mean Corpuscular Volume 64.4 Mean Corpuscular Hemoglobin 19.6 Mean Corpuscular Hemoglobin Concent 30.4 Red Cell Distribution Width 23.9 Platelet Count 482 Mean Platelet Volume 8.2 Neutrophils (%) (Auto) 77.7 Lymphocytes (%) (Auto) 13.3 Monocytes (%) (Auto) 7.7 Eosinophils (%) (Auto) 1.0 Basophils (%) (Auto) 0.3 Neutrophils # (Auto) 10.3 Lymphocytes # (Auto) 1.8 Monocytes # (Auto) 1.0 Eosinophils # (Auto) 0.1 Basophils # (Auto) 0.0 CBC Comment DIFF FINAL Differential Comment Blood Urea Nitrogen 9 Creatinine 1.11 Random Glucose 100 Total Protein 7.3 Albumin 2.5 Calcium Level 8.5 Alkaline Phosphatase 61 Aspartate Amino Transf (AST/SGOT) 49 Alanine Aminotransferase (ALT/SGPT) 15 Total Bilirubin 0.5 Sodium Level 137 Potassium Level 3.8 Chloride Level 103 Carbon Dioxide Level 24.4 Anion Gap 10 Estimat Glomerular Filtration Rate 58 Date/Time Source Procedure Growth Status 10/10/17 01:32 Blood Peripheral Aerobic Blood Culture Pending Received 10/10/17 01:32 Blood Peripheral Anaerobic Blood Culture Pending Received Result Diagram: 10/11/17 0552 10/11/17 0552 Imaging Last Impressions Abdomen/Pelvis CT 10/09/17 1210 Signed Impressions: CONCLUSION: 1. 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 Questionable bony metastasis lower tho racic spine. 2. Mild bilateral hydronephrosis likely related to the pelvic mass. There is s ome free fluid in the pelvis. Chest CT 10/09/17 0000 Signed Impressions: CONCLUSION: 1. Pulmonary parenchymal metastatic disease. No adenopathy or effusion. Assessment and Plan Problem List: (1) Pelvic mass ICD Codes: R19.00 - Intra-abdominal and pelvic swelling, mass and lump, unspecified site Status: Acute Plan: IR for BX today added order for BX of liver to confirm metastatic disease will allow for better counseling and treatment plan order placed Heparin on Hold for procedure final pathology will direct treatment plan Thank you Dr. Justice for consult will continue to follow. Dilcia Blanchard Oct 11, 2017 08:24
[2017-10-11] MEDS: LACTULOSE SYRUP 20 GM/30 ML CUP PO SCH (09:00)
[2017-10-11] MEDS: amLODIPine BESYLATE 5 MG TAB PO SCH (09:01)
[2017-10-11] MEDS: SODIUM CHLORIDE 0.9% FLUSH 10 ML FLUSH IV FLUSH SCH ×2 (09:03→20:41)
[2017-10-11 09:49] LABS: AUTOMATED NEUTROPHIL # 11.1 TH/MM3 (1.8-7.7); BASOPHIL % 0.2 % (0.0-2.0); EOSINOPHIL # 0.2 TH/MM3 (0-0.4); EOSINOPHIL % 1.3 % (0.0-4.0); HEMOGLOBIN 8.5 GM/DL (11.6-15.3); LYMPH % 13.1 % (9.0-44.0); LYMPHOCYTE # 1.8 TH/MM3 (1.0-4.8); MEAN CELL VOLUME 64.2 FL (80.0-100.0); MEAN CORPUSCULAR HEMOGLOBIN 19.5 PG (27.0-34.0); MEAN CORPUSCULAR HGB CONC 30.4 % (32.0-36.0); MEAN PLATELET VOLUME 8.2 FL (7.0-11.0); MONO % 6.2 % (0.0-8.0); MONOCYTE # 0.9 TH/MM3 (0-0.9); NEUT % 79.2 % (16.0-70.0); PLATELET COUNT 559 TH/MM3 (150-450); RED BLOOD COUNT 4.37 MIL/MM3 (4.00-5.30); RED CELL DISTRIBUTION WIDTH 23.8 % (11.6-17.2); WHITE BLOOD COUNT 14.1 TH/MM3 (4.0-11.0)
[2017-10-11 10:03] LABS: INTERNATIONAL NORMALIZED RATIO 1.3 RATIO; PROTHROMBIN TIME - PATIENT 13.4 SEC (9.8-11.6)
[2017-10-11] MEDS: cloNIDine HCL 0.1 MG TAB PO PRN ×2 (13:19→20:41)
[2017-10-11] MEDS ORDERED: MIDAZOLAM HCL 5 MG/5 ML VIAL ONE (13:36)
[2017-10-11] MEDS ORDERED: fentaNYL CITRATE 250 MCG/5 ML AMP ONE (13:36)
--- NOTE | 2017-10-11 14:08 | HHI.PR ---
Subjective Remarks Patient reports she is feeling okay today. Abdominal pain is controlled. Objective Vitals Vital Signs Date Time Temp Pulse Resp B/P (MAP) Pulse Ox O2 Delivery O2 Flow Rate FiO2 10/11/17 12:15 100.0 104 22 174/80 (111) 94 10/11/17 08:50 98.8 101 18 162/83 (109) 92 10/11/17 05:14 99.5 95 16 148/77 (100) 95 10/11/17 04:00 85 10/11/17 00:16 99.7 97 16 153/79 (103) 97 10/11/17 00:00 93 10/10/17 20:10 99.2 84 16 141/76 (97) 100 10/10/17 20:00 85 10/10/17 19:30 94 16 151/84 100 10/10/17 16:53 98.1 91 20 152/76 99 10/10/17 16:38 98.5 98 18 159/82 95 10/10/17 16:00 97.9 100 20 153/84 (107) 96 10/10/17 15:00 100 I/O 10/10/17 10/10/17 10/10/17 10/11/17 10/11/17 10/11/17 07:00 15:00 23:00 07:00 15:00 23:00 Intake Total 340 ml 100 ml 1360 ml 820 ml Balance 340 ml 100 ml 1360 ml 820 ml Intake Oral 240 ml 960 ml 720 ml IV Total 100 ml 100 ml 100 ml Packed Cells 400 ml # Voids 2 4 1 # Bowel Movements 1 0 Result Diagram: 10/11/17 0835 10/11/17 0552 Objective Remarks GENERAL: Elderly female, in no apparent distress. CARDIOVASCULAR: Normal rate and regular rhythm without murmurs, gallops, or rubs. RESPIRATORY: Good respiratory efforts. Breath sounds equal and clear to auscultation bilaterally. GASTROINTESTINAL: Abdomen with apparent large firm mass in the suprapubic region. Tender to palpation MUSCULOSKELETAL: Extremities without cyanosis, or edema. NEURO: Alert & Oriented x4 to person, place, time, situation. Moves all ext x4 PSYCH: Appropriate mood and affect. A/P Problem List: (1) Pelvic mass ICD Code: R19.00 - Intra-abdominal and pelvic swelling, mass and lump, unspecified site Status: Acute (2) Abdominal pain ICD Code: R10.9 - Unspecified abdominal pain (3) Hypertensive urgency ICD Code: I16.0 - Hypertensive urgency (4) Post-menopausal bleeding ICD Code: N95.0 - Postmenopausal bleeding (5) Leukocytosis ICD Code: D72.829 - Elevated white blood cell count, unspecified Status: Acute Assessment and Plan 72--year-old -Finnish female admitted secondary to pelvic mass and bleeding with anemia Acute blood loss anemia Status post 1 unit of PRBC transfusion. She has had some vaginal bleeding. Follow hemoglobin level Stool studies pending Pelvic mass Abdominal pain Further workup in process Oncology following. Plan for biopsy today. 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 Acute kidney injury Hydronephrosis Follow renal function Avoid nephrotoxins Improving thus far Leukocytosis Fever Rocephin Follow CBC and blood cultures. Plan to discontinue antibiotics tomorrow if remains stable. No clear source. Hypertensive urgency Improved Continue p.o. Norvasc Continue as needed clonidine DVT prophylaxis SCDs Anticoagulation on hold due to anemia Problem Qualifiers (1) Leukocytosis: Qualified Codes: D72.825 - Bandemia Chiara Suero MD Oct 11, 2017 14:08
[2017-10-11] MEDS ORDERED: LIDOCAINE HCL 1% 10 ML VIAL SQ ONE (15:19)
--- NOTE | 2017-10-11 16:35 | RADRPT ---
EXAM DATE: 10/11/2017 3:32 PM EDT AGE/SEX: 72 years / Female INDICATIONS: Liver biopsy. CLINICAL DATA: This is the patient's initial encounter. Patient reports that signs and symptoms have been present for 1 day and indicates a pain score of 0/10. MEDICAL/SURGICAL HISTORY: Cardiovascular disease. Hypertension. liver mass, pelvic mass None. COMPARISON: No prior exams available for comparison. BIOPSY SITE: . liver MEDICATION(S): 2.5mg midazolam (Versed) IV 100mcg fentanyl (Sublimaze) IV DEVICE(S): 18 gauge BioPince needle . . PROCEDURE: CT guided . liver biopsy Prior to the procedure informed consent was obtained. Any appropriate prior imaging studies were rev iewed. Using automated exposure control and adjustment of the mA and/or kV according to patient size, radiat ion dose was kept as low as reasonably achievable to obtain optimal diagnostic quality images. DICOM format image data is available electronically for review and comparison. The site was prepped in a sterile fashion. Full sterile technique was used, including cap, mask, jeremy rile gloves and gown and a large sterile sheet. Hand hygiene and 2% chlorhexidine and/or betadine/al cohol prep was utilized per protocol for cutaneous antisepsis. The skin and subcutaneous tissues wer e infiltrated with local anesthetic solution. With CT guidance the previously identified target was localized. Biopsy was performed using the presc ribed needle as above. Adequate hemostasis was obtained with compression at the puncture site. Follow-up CT scan reveals no hemorrhage. The patient tolerated the procedure well and there were no complications. The patient was returned to the Radiology Outpatient Unit in stable condition. CONCLUSION: 1. 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 Electronically signed by: Sloan Dixon MD 10/11/2017 4:34 PM EDT
--- NOTE | 2017-10-11 18:37 | MB ---
cc: Lynn Shah MD,Marcell Lanza,Paramjit Suero,Germain Lewis MD DATE: 10/11/2017 DATE OF CONSULTATION: 10/11/2017 PHYSICIAN REQUESTING CONSULTATION: Marcell Justice REASON FOR CONSULTATION: Concern regarding a possible gynecologic malignancy. Aisha Villareal, her findings are reviewed. She is seen by me and counseled by me and examined by me in conjunction with our nurse practitioner (Dilcia Blanchard). I agree with her findings, assessment and plan of care. HISTORY OF PRESENT ILLNESS: This is a 72-year-old female who has had symptoms of intermittent abdominal pain and postmenopausal bleeding of uncertain duration, but has been going on at least for many months. As her pain worsened, she presented to the emergency room for evaluation. Included in the examination, as well as imaging shows a large mass in the pelvis, complex multilobulated. Difficult to delineate the cervix from the uterus and from the adnexa. Also, has significant retroperitoneal adenopathy including 4 cm paraaortic mass thought to be adenopathy. There is a 5 cm mass in the right liver thought to be suspicious for metastatic disease and there is multifocal bilateral pulmonary nodules, all thought to be suspicious for metastatic disease. She underwent a CT-directed biopsy of the liver today, which she tolerated well. She is seen now resting comfortably in her room after that procedure. The reason for PERIANESTHESIA RN oncology consultation is explained and I summarized the aforementioned findings. She expresses good understanding. She is accompanied by her daughter. They asked appropriate questions and seemed to understand the pertinent aspects of our discussion. She understands that the findings thus far are quite suspicious for malignancy. However, malignancy is not yet confirmed. The biopsy will likely clarify that, but furthermore, it may help determine the origin of the problem and how it looks under the microscope and from that we may be able to make better recommendations regarding treatment. It has been a number of years since she has had a gynecologic exam or a Pap smear and a pelvic exam is recommended. Perhaps in more optimal setting, we will be able to get better information, either in a standard gynecologic exam room or possibly exam under anesthesia, but she understands and consents to that without any problem, as she is in favor of finding out as much information as possible. PAST MEDICAL HISTORY: She is infrequent with respect to health care followup. She has no history of hypertension. OBSTETRIC, GYNECOLOGIC HISTORY: She has had 4 vaginal births. PAST SURGICAL HISTORY: She has had no prior abdominal surgeries. Does not report any other surgeries. ALLERGIES: NO KNOWN ALLERGIES. REVIEW OF SYSTEMS: As per history of present illness. She has not noted any obvious hematuria or dysuria. No bright red blood or melanotic stool change. No chest pain, shortness of breath or palpitations. No febrile illness. Nobody in the family has been sick. FAMILY HISTORY: She has 3 siblings who are alive. Her parents are . There is no known history of cancer amongst them. MEDICATIONS: As outlined in the chart. ADDITIONAL OBJECTIVE FINDINGS: Hemoglobin hematocrit 8.5 and 28. White count 14.1, platelets 559. Modestly elevated CA-125 at 170, CEA is normal at 0.8, potassium 3.8, BUN and creatinine 9 and 1.11. Serum albumin low at 2.5. PHYSICAL EXAMINATION: VITAL SIGNS: Her maximum temperature since admission on 10/09/2017 is 100.0 degrees, she is currently afebrile, pulse 92-104, respirations 16-22, blood pressure 128-174/66-83, O2 saturations greater than or equal to 92 percent while asleep, as good as greater than 97% while awake. GENERAL: She is resting comfortably. She is in no acute distress. HEENT: Pupils equal, round and reactive to light. Mucous membranes are moist. There is good skin color and turgor, without undue pale changes. There is no appreciably enlarged cervical or supraclavicular lymph nodes. BACK: Without CVA tenderness or spinal point tenderness. CARDIOVASCULAR SYSTEM: Distant S1 and S2. Regular rate and rhythm. LUNGS: Clear to auscultation bilaterally. Mild rales at the bases. ABDOMEN: Nonacute, but the exam is uncomfortable. There is an obvious mass effect that is firm, fixed, minimal mobility, best felt in the left lower abdomen. It extends above the level of the umbilicus and extends from the abdominal sidewall to sidewall. PELVIC: Deferred into a more optimal setting. EXTREMITIES: Neurovascular intact. There are some changes that appear to be chronic venous stasis changes or some vascular compromise changes, although her extremities are warm. She has some scarring consistent with previous ulcers that may represent venous stasis ulcers. There are no palpable cords. She seems to have adequate range of motion in her extremities. Time was spent in discussion with her and her daughter, reviewing the findings in her case to date. I again explained the reason for consultation by a PERIANESTHESIA RN oncologist and we will follow along in her care as we get additional information. We will share that with them and from that information, we can make potential treatment recommendations. She understands that supportive care, palliative care, hospice are also available options depending on the overall status, but we will try to educate her as to what would be involved regarding any treatment that is recommended, answer questions to the best of our capacity and let her make informed decision. They are grateful for the time spent and seemed to express good understanding. ASSESSMENT: 1. Large complex pelvic mass, retroperitoneal adenopathy, liver mass, multifocal pulmonary nodules, all suspicious for malignancy of probable gynecologic origin. 2. Status post biopsy of the liver mass today, results pending. 3. Extensive discussion. PLAN: 1. Continue present management from a medical standpoint, supportive care, correction of fluid and electrolytes transfusion ongoing. 2. We will await biopsy results in the hopes of clarifying the problem. 3. We will do a more formal pelvic exam in the near future to try to get updated information as well. Thank you for the consultation. We will follow along in her care. MD WILLIAMS Coyle/ANTONIO , 04:28 PM , 06:37 PM
[2017-10-11] MEDS: ACETAMINOPHEN 325 MG TAB PO PRN (20:41)
[2017-10-12] VITALS (16 sets, daily range): BP systolic 140–188; BP diastolic 71–89; PULSE 84–107; RESP 16–20; TEMP 98.4–100.2; O2SAT 96–100
[2017-10-12] MEDS: cefTRIAXone INJ 1,000 MG in SODIUM CHLORIDE 0.9% INJ 100 ML IV SCH (00:35)
[2017-10-12 05:50] LABS: HEMATOCRIT 25.2 % (35.0-46.0); HEMOGLOBIN 7.6 GM/DL (11.6-15.3); MEAN CELL VOLUME 64.4 FL (80.0-100.0); MEAN CORPUSCULAR HEMOGLOBIN 19.5 PG (27.0-34.0); MEAN CORPUSCULAR HGB CONC 30.3 % (32.0-36.0); MEAN PLATELET VOLUME 7.9 FL (7.0-11.0); PLATELET COUNT 503 TH/MM3 (150-450); RED BLOOD COUNT 3.91 MIL/MM3 (4.00-5.30); RED CELL DISTRIBUTION WIDTH 24.2 % (11.6-17.2); WHITE BLOOD COUNT 15.1 TH/MM3 (4.0-11.0)
[2017-10-12 06:19] LABS: BICARBONATE 25.8 MEQ/L (21.0-32.0); CALCIUM 8.5 MG/DL (8.5-10.1)
[2017-10-12 06:26] LABS: CREATININE 1.09 MG/DL (0.50-1.00)
[2017-10-12] MEDS: HEPARIN SODIUM - SQ 10,000 UNITS/ML VIAL SQ SCH ×2 (09:41→18:12)
[2017-10-12] MEDS: LACTULOSE SYRUP 20 GM/30 ML CUP PO SCH (09:41)
[2017-10-12] MEDS: amLODIPine BESYLATE 5 MG TAB PO SCH (09:41)
[2017-10-12] MEDS: SODIUM CHLORIDE 0.9% FLUSH 10 ML FLUSH IV FLUSH SCH ×2 (09:41→20:54)
[2017-10-12] MEDS ORDERED: LACTULOSE SYRUP 20 GM/30 ML CUP PO SCH (11:30)
--- NOTE | 2017-10-12 12:19 | HHI.PR ---
Subjective Remarks Patient reports she is feeling better. She is able to eats some. Abdominal pain is improved. States she has not had a bowel movement. Objective Vitals Vital Signs Date Time Temp Pulse Resp B/P (MAP) Pulse Ox O2 Delivery O2 Flow Rate FiO2 10/12/17 11:41 176/82 (113) 10/12/17 11:19 99.7 107 18 185/84 (117) 96 10/12/17 11:00 95 10/12/17 09:29 98.8 94 18 166/83 (110) 99 10/12/17 07:00 86 10/12/17 05:25 98.8 95 20 146/73 (97) 100 10/12/17 04:02 84 10/12/17 00:31 98.4 95 140/71 (94) 98 10/12/17 00:00 93 10/11/17 20:32 101.5 110 20 177/86 (116) 92 10/11/17 20:06 102 10/11/17 15:43 99.8 103 20 167/77 (107) 95 10/11/17 15:25 90 18 128/66 (86) 97 10/11/17 14:55 99 18 143/68 (93) 100 10/11/17 14:40 98.6 103 18 154/70 (98) 98 I/O 10/11/17 10/11/17 10/11/17 10/12/17 10/12/17 10/12/17 07:00 15:00 23:00 07:00 15:00 23:00 Intake Total 820 ml 400 ml 360 ml Balance 820 ml 400 ml 360 ml Intake Oral 720 ml 400 ml 360 ml IV Total 100 ml # Voids 1 2 # Bowel Movements 1 Result Diagram: 10/12/1751810/12/17518 Objective Remarks GENERAL: Elderly female, in no apparent distress. CARDIOVASCULAR: Normal rate and regular rhythm without murmurs, gallops, or rubs. RESPIRATORY: Good respiratory efforts. Breath sounds equal and clear to auscultation bilaterally. GASTROINTESTINAL: Abdomen with apparent large firm mass in the suprapubic region. Tender to palpation MUSCULOSKELETAL: Extremities without cyanosis, or edema. NEURO: Alert & Oriented x4 to person, place, time, situation. Moves all ext x4 PSYCH: Appropriate mood and affect. A/P Problem List: (1) Pelvic mass ICD Code: R19.00 - Intra-abdominal and pelvic swelling, mass and lump, unspecified site Status: Acute (2) Abdominal pain ICD Code: R10.9 - Unspecified abdominal pain (3) Hypertensive urgency ICD Code: I16.0 - Hypertensive urgency (4) Post-menopausal bleeding ICD Code: N95.0 - Postmenopausal bleeding (5) Leukocytosis ICD Code: D72.829 - Elevated white blood cell count, unspecified Status: Acute Assessment and Plan 72--year-old -[place] female admitted secondary to pelvic mass and bleeding with anemia Acute blood loss anemia Status post 1 unit of PRBC transfusion. She has had some vaginal bleeding. Hemoglobin down to 7.6 today. Follow hemoglobin level Stool studies pending Pelvic mass Abdominal pain Oncology following. Status post biopsy. EXTRACTOR PULLER oncology following. Planning for pelvic exam in the future. Acute kidney injury Hydronephrosis Follow renal function Avoid nephrotoxins Improving thus far Leukocytosis Fever Fever resolved but leukocytosis persists. No clear source of infection. Has been on Rocephin. Discontinue antibiotics and monitor. Hypertensive urgency Improved Continue p.o. Norvasc, increase to 10 mg daily. Continue as needed clonidine DVT prophylaxis SCDs Anticoagulation on hold due to anemia Discharge Planning Follow H&H. Further recs from EXTRACTOR P[employer] oncology regarding timing of pelvic exam. Problem Qualifiers (1) Leukocytosis: Qualified Codes: D72.825 - Chiara Franco MD Oct 12, 2017 12:19
[2017-10-12] MEDS: cloNIDine HCL 0.1 MG TAB PO PRN (15:32)
[2017-10-13] VITALS (12 sets, daily range): BP systolic 166–178; BP diastolic 74–91; PULSE 90–106; RESP 16–20; TEMP 99–99.5; O2SAT 95–100
[2017-10-13] MEDS: HEPARIN SODIUM - SQ 10,000 UNITS/ML VIAL SQ SCH ×3 (00:42→17:14)
[2017-10-13] MEDS: cefTRIAXone INJ 1,000 MG in SODIUM CHLORIDE 0.9% INJ 100 ML IV SCH (00:42)
[2017-10-13] MEDS: SODIUM CHLORIDE 0.9% FLUSH 10 ML FLUSH IV FLUSH SCH ×2 (09:00→20:02)
[2017-10-13] MEDS: LACTULOSE SYRUP 20 GM/30 ML CUP PO SCH (09:06)
[2017-10-13 11:28] LABS: AUTOMATED NEUTROPHIL # 13.5 TH/MM3 (1.8-7.7); BASOPHIL % 0.3 % (0.0-2.0); EOSINOPHIL % 0.3 % (0.0-4.0); HEMOGLOBIN 8.4 GM/DL (11.6-15.3); LYMPH % 8.2 % (9.0-44.0); LYMPHOCYTE # 1.3 TH/MM3 (1.0-4.8); MEAN CELL VOLUME 65.2 FL (80.0-100.0); MEAN CORPUSCULAR HEMOGLOBIN 19.5 PG (27.0-34.0); MEAN PLATELET VOLUME 7.8 FL (7.0-11.0); MONO % 6.3 % (0.0-8.0); NEUT % 84.9 % (16.0-70.0); PLATELET COUNT 512 TH/MM3 (150-450); RED CELL DISTRIBUTION WIDTH 24.1 % (11.6-17.2); WHITE BLOOD COUNT 15.8 TH/MM3 (4.0-11.0)
[2017-10-13 11:38] LABS: MEAN CORPUSCULAR HGB CONC 29.8 % (32.0-36.0)
[2017-10-13 11:58] LABS: BICARBONATE 24.6 MEQ/L (21.0-32.0); CALCIUM 9.1 MG/DL (8.5-10.1); CREATININE 1.08 MG/DL (0.50-1.00)
[2017-10-13] MEDS ORDERED: AMLO10 PO (14:22)
--- NOTE | 2017-10-13 15:10 | HHI.PR ---
Subjective Remarks Patient reports she is feeling okay. Pain is controlled. Scant vaginal bleeding. Objective Vitals Vital Signs Date Time Temp Pulse Resp B/P (MAP) Pulse Ox O2 Delivery O2 Flow Rate FiO2 10/13/17 12:00 166/74 (104) 10/13/17 12:00 99.3 99 16 99 10/13/17 11:00 97 10/13/17 08:00 99.0 102 18 169/84 (112) 99 10/13/17 07:00 102 10/13/17 05:02 99.5 101 20 174/81 (112) 95 10/13/17 04:02 90 10/13/17 00:37 99.3 99 18 178/84 (115) 95 10/12/17 23:06 87 10/12/17 20:54 99 10/12/17 20:52 100.2 99 16 175/78 (110) 100 10/12/17 19:18 97 10/12/17 15:29 188/82 (117) 10/12/17 15:27 99.4 98 18 172/89 (116) 99 I/O 10/12/17 10/12/17 10/12/17 10/13/17 10/13/17 10/13/17 07:00 15:00 23:00 07:00 15:00 23:00 Intake Total 400 ml 360 ml Balance 400 ml 360 ml Intake Oral 400 ml 360 ml # Voids 3 3 # Bowel Movements 1 2 1 Result Diagram: 10/13/17 1038 10/13/17 1038 Objective Remarks GENERAL: Elderly female, in no apparent distress. CARDIOVASCULAR: Normal rate and regular rhythm without murmurs, gallops, or rubs. RESPIRATORY: Good respiratory efforts. Breath sounds equal and clear to auscultation bilaterally. GASTROINTESTINAL: Abdomen with apparent large firm mass in the suprapubic region. Tender to palpation MUSCULOSKELETAL: Extremities without cyanosis, or edema. NEURO: Alert & Oriented x4 to person, place, time, situation. Moves all ext x4 PSYCH: Appropriate mood and affect. A/P Problem List: (1) Pelvic mass ICD Code: R19.00 - Intra-abdominal and pelvic swelling, mass and lump, unspecified site Status: Acute (2) Abdominal pain ICD Code: R10.9 - Unspecified abdominal pain (3) Hypertensive urgency ICD Code: I16.0 - Hypertensive urgency (4) Post-menopausal bleeding ICD Code: N95.0 - Postmenopausal bleeding (5) Leukocytosis ICD Code: D72.829 - Elevated white blood cell count, unspecified Status: Acute Assessment and Plan 72-year-old -[place] female admitted secondary to pelvic mass and bleeding with anemia Acute blood loss anemia Status post 1 unit of PRBC transfusion. She has had some vaginal bleeding. Hemoglobin stable today at 8.4. Follow hemoglobin level Still having scant vaginal bleeding. Continue to monitor. Pelvic mass Abdominal pain Oncology following. Status post biopsy. [employer] SE[employer]ER [employer] TE[employer] oncology following. Planning for pelvic exam in the future. Discussed with pathology department today. Expect results by tomorrow morning. Acute kidney injury Hydronephrosis Follow renal function Avoid nephrotoxins Improving thus far Leukocytosis Fever Fever resolved but leukocytosis persists. No clear source of infection. Has been on Rocephin. Antibiotics discontinued. Hypertensive urgency Improved Continue p.o. Norvasc, increase to 10 mg daily. Continue as needed clonidine DVT prophylaxis SCDs Anticoagulation on hold due to anemia Discharge Planning Follow H&H. Awaiting pathology result. We should have results by tomorrow morning. Problem Qualifiers (1) Leukocytosis: Qualified Codes: D72.825 - Bandemia Chiara Suero MD Oct 13, 2017 15:10
--- NOTE | 2017-10-13 18:42 | PD.ONC.PN ---
Subjective Subjective Remarks Patient remains comfortable as long as she is not moving around much. She is still weak and frail. Her daughter would like her to go home. Objective Data Date Time Temp Pulse Resp B/P (MAP) Pulse Ox O2 Delivery O2 Flow Rate FiO2 10/13/17 12:00 166/74 (104) 10/13/17 12:00 99.3 99 16 99 10/13/17 11:00 97 10/13/17 08:00 99.0 102 18 169/84 (112) 99 10/13/17 07:00 102 10/13/17 05:02 99.5 101 20 174/81 (112) 95 10/13/17 04:02 90 10/13/17 00:37 99.3 99 18 178/84 (115) 95 10/12/17 23:06 87 10/12/17 20:54 99 10/12/17 20:52 100.2 99 16 175/78 (110) 100 10/12/17 19:18 97 Result Diagram: 10/13/17 1038 10/13/17 1038 Laboratory Results Laboratory Tests Test 10/13/17 10:38 White Blood Count 15.8 TH/MM3 Red Blood Count 4.30 MIL/MM3 Hemoglobin 8.4 GM/DL Hematocrit 28.0 % Mean Corpuscular Volume 65.2 FL Mean Corpuscular Hemoglobin 19.5 PG Mean Corpuscular Hemoglobin Concent 29.8 % Red Cell Distribution Width 24.1 % Platelet Count 512 TH/MM3 Mean Platelet Volume 7.8 FL Neutrophils (%) (Auto) 84.9 % Lymphocytes (%) (Auto) 8.2 % Monocytes (%) (Auto) 6.3 % Eosinophils (%) (Auto) 0.3 % Basophils (%) (Auto) 0.3 % Neutrophils # (Auto) 13.5 TH/MM3 Lymphocytes # (Auto) 1.3 TH/MM3 Monocytes # (Auto) 1.0 TH/MM3 Eosinophils # (Auto) 0.0 TH/MM3 Basophils # (Auto) 0.0 TH/MM3 CBC Comment DIFF FINAL Differential Comment Blood Urea Nitrogen 9 MG/DL Creatinine 1.08 MG/DL Random Glucose 131 MG/DL Calcium Level 9.1 MG/DL Sodium Level 139 MEQ/L Potassium Level 3.8 MEQ/L Chloride Level 103 MEQ/L Carbon Dioxide Level 24.6 MEQ/L Anion Gap 11 MEQ/L Estimat Glomerular Filtration Rate 60 ML/MIN Culture Results Microbiology Date/Time Source Procedure Growth Status 10/12/17 20:43 Stool Stool Stool Occult Blood (KIESHA) - Final HEMOCCULT NEGATIVE Complete Administered Medications Medications (Trade) Dose Ordered Sig/Ho Route PRN Reason Start Time Stop Time Status Last Admin Dose Admin Sodium Chloride (NS Flush) 2 ml BID IV FLUSH 10/09/17 21:00 10/13/17 09:00 Heparin Sodium (Porcine) (Heparin Inj) 5,000 units Q8H SQ 10/09/17 17:00 Future hold 10/13/17 17:14 Clonidine (Catapres) 0.1 mg Q6H PRN PO SBP> OR = 180, DBP> OR = 100 10/09/17 16:15 10/12/17 15:32 Lactulose (Lactulose Liq) 30 ml DAILY PO 10/09/17 16:15 10/13/17 09:06 Acetaminophen/ Hydrocodone Bitart ([place] 7.5-325 Mg) 1 tab Q4H PRN PO PAIN SCALE 6 TO 10 10/09/17 16:45 10/11/17 02:32 Morphine Sulfate (Morphine Inj) 2 mg Q3H PRN IV PUSH Pain 3-5; if unable to take PO 10/09/17 16:45 10/09/17 17:13 Ondansetron HCl (Zofran Inj) 4 mg Q6H PRN IV PUSH Nausea 10/10/17 09:45 10/10/17 10:30 Amlodipine Besylate (Norvasc) 10 mg DAILY PO 10/13/17 09:00 10/13/17 09:05 Objective Remarks GENERAL: Weak and frail SKIN: Warm and dry. HEAD: Normocephalic. EYES: No scleral icterus. No injection or drainage. NECK: Supple, trachea midline. No JVD or lymphadenopathy. LYMPHATIC: No adenopathy. CARDIOVASCULAR: Regular rate and rhythm without murmurs. RESPIRATORY: Breath sounds equal bilaterally. No accessory muscle use. GASTROINTESTINAL: Large abdominal mass which is tender EXTREMITIES: Bilateral +1 edema MUSCULOSKELETAL: Poor muscle tone NEUROLOGICAL: No obvious focal deficit. Awake, alert, and oriented x3. PSYCHIATRIC: Sad Assessment/Plan Assessment 72-year-old female admitted with abdominal pain and constipation found to have a 22 cm pelvic mass with probable metastatic disease to liver and lung Plan 1. Patient has extensive metastatic disease. Pathology is pending. I asked the daughter to bear with us as I believe that we should make a decision as to the direction of care while she is in the hospital and everyone is available. This includes medical oncology, gynecologic oncology, palliative care, and hospice. When she is home it will be more difficult to do these things in a timely fashion. Marcell Justice MD Oct 13, 2017 18:42
[2017-10-14] MEDS: HEPARIN SODIUM - SQ 10,000 UNITS/ML VIAL SQ SCH ×2 (00:10→09:45)
[2017-10-14 00:13] VITALS: BP 184/89; PULSE 93; RESP 20; TEMP 99.5; O2SAT 98
[2017-10-14] MEDS: cloNIDine HCL 0.1 MG TAB PO PRN (00:18)
[2017-10-14 04:04] VITALS: PULSE 85
[2017-10-14 05:19] VITALS: BP 164/87; PULSE 85; RESP 18; TEMP 98.8; O2SAT 100
[2017-10-14 06:49] LABS: HEMATOCRIT 26.5 % (35.0-46.0); MEAN CELL VOLUME 64.3 FL (80.0-100.0); MEAN CORPUSCULAR HEMOGLOBIN 19.5 PG (27.0-34.0); MEAN CORPUSCULAR HGB CONC 30.3 % (32.0-36.0); MEAN PLATELET VOLUME 8.5 FL (7.0-11.0); PLATELET COUNT 496 TH/MM3 (150-450); RED BLOOD COUNT 4.12 MIL/MM3 (4.00-5.30); RED CELL DISTRIBUTION WIDTH 24.2 % (11.6-17.2)
[2017-10-14 08:00] VITALS: BP 147/73; PULSE 77; PULSE 88; RESP 16; TEMP 98.6; O2SAT 100
[2017-10-14] MEDS: LACTULOSE SYRUP 20 GM/30 ML CUP PO SCH (09:44)
[2017-10-14] MEDS: SODIUM CHLORIDE 0.9% FLUSH 10 ML FLUSH IV FLUSH SCH (09:45)
--- NOTE | 2017-10-14 09:59 | PD.ONC.PN ---
Subjective Subjective Remarks Afebrile overnight. Patient resting in bed with daughter at bedside. they are eager to know diagnosis and to go home. Objective Data Date Time Temp Pulse Resp B/P (MAP) Pulse Ox O2 Delivery O2 Flow Rate FiO2 10/14/17 08:00 98.6 88 16 147/73 (97) 100 10/14/17 05:19 98.8 85 18 164/87 (112) 100 10/14/17 04:04 85 10/14/17 00:13 99.5 93 20 184/89 (120) 98 10/13/17 23:06 106 10/13/17 20:00 99.2 96 20 176/91 (119) 100 10/13/17 19:10 96 10/13/17 16:00 99.0 98 20 175/84 (114) 97 10/13/17 15:00 98 10/13/17 12:00 166/74 (104) 10/13/17 12:00 99.3 99 16 99 10/13/17 11:00 97 10/14/17 10/14/17 10/14/17 07:00 15:00 23:00 Intake Total 600 ml Balance 600 ml Result Diagram: 10/14/17 0553 10/13/17 1038 Laboratory Results Laboratory Tests Test 10/13/17 10:38 10/14/17 05:53 White Blood Count 15.8 TH/MM3 13.0 TH/MM3 Red Blood Count 4.30 MIL/MM3 4.12 MIL/MM3 Hemoglobin 8.4 GM/DL 8.0 GM/DL Hematocrit 28.0 % 26.5 % Mean Corpuscular Volume 65.2 FL 64.3 FL Mean Corpuscular Hemoglobin 19.5 PG 19.5 PG Mean Corpuscular Hemoglobin Concent 29.8 % 30.3 % Red Cell Distribution Width 24.1 % 24.2 % Platelet Count 512 TH/MM3 496 TH/MM3 Mean Platelet Volume 7.8 FL 8.5 FL Neutrophils (%) (Auto) 84.9 % Lymphocytes (%) (Auto) 8.2 % Monocytes (%) (Auto) 6.3 % Eosinophils (%) (Auto) 0.3 % Basophils (%) (Auto) 0.3 % Neutrophils # (Auto) 13.5 TH/MM3 Lymphocytes # (Auto) 1.3 TH/MM3 Monocytes # (Auto) 1.0 TH/MM3 Eosinophils # (Auto) 0.0 TH/MM3 Basophils # (Auto) 0.0 TH/MM3 CBC Comment DIFF FINAL Differential Comment Blood Urea Nitrogen 9 MG/DL Creatinine 1.08 MG/DL Random Glucose 131 MG/DL Calcium Level 9.1 MG/DL Sodium Level 139 MEQ/L Potassium Level 3.8 MEQ/L Chloride Level 103 MEQ/L Carbon Dioxide Level 24.6 MEQ/L Anion Gap 11 MEQ/L Estimat Glomerular Filtration Rate 60 ML/MIN Culture Results Microbiology Date/Time Source Procedure Growth Status 10/12/17 20:43 Stool Stool Stool Occult Blood (KIESHA) - Final HEMOCCULT NEGATIVE Complete Administered Medications Medications (Trade) Dose Ordered Sig/Ho Route PRN Reason Start Time Stop Time Status Last Admin Dose Admin Sodium Chloride (NS Flush) 2 ml BID IV FLUSH 10/09/17 21:00 10/14/17 09:45 Heparin Sodium (Porcine) (Heparin Inj) 5,000 units Q8H SQ 10/09/17 17:00 Future hold 10/14/17 09:45 Clonidine (Catapres) 0.1 mg Q6H PRN PO SBP> OR = 180, DBP> OR = 100 10/09/17 16:15 10/14/17 00:18 Lactulose (Lactulose Liq) 30 ml DAILY PO 10/09/17 16:15 10/14/17 09:44 Acetaminophen/ Hydrocodone Bitart ([place] 7.5-325 Mg) 1 tab Q4H PRN PO PAIN SCALE 6 TO 10 10/09/17 16:45 10/11/17 02:32 Morphine Sulfate (Morphine Inj) 2 mg Q3H PRN IV PUSH Pain 3-5; if unable to take PO 10/09/17 16:45 10/09/17 17:13 Ondansetron HCl (Zofran Inj) 4 mg Q6H PRN IV PUSH Nausea 10/10/17 09:45 10/10/17 10:30 Amlodipine Besylate (Norvasc) 10 mg DAILY PO 10/13/17 09:00 10/14/17 09:44 Objective Remarks GENERAL: Pleasant elderly female, sitting up on side of bed in nad. SKIN: Warm and dry. HEAD: Normocephalic. EYES: No injection or drainage. NECK: Supple, trachea midline. CARDIOVASCULAR: Regular rate and rhythm RESPIRATORY: Breath sounds equal bilaterally. No accessory muscle use. GASTROINTESTINAL: Abdomen distended. EXTREMITIES: No cyanosis NEUROLOGICAL: awake and alert. normal speech. 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 --22 cm pelvic mass --probable metastatic disease to liver and lung Plan 1. Dr. Justice reviewed pathology with Dr. Garcia and looked at slides this AM. final pathology is pending but we discussed with the patient and her daughter that this is some type of cancer and the final pathology is pending. Dr. Justice told the patient and her daughter that Dr. Shah/SENIOR RESEARCH ENGINEER oncology would discuss treatment further with them, but we discussed in general that treatment could include chemotherapy. We also discussed the option for comfort based care only , namely, hospice. emotional support provided. questions answered. patient indicated she would like to stay in the hospital for port placement tomorrow AM and then go home after that. Attending Statement The exam, history, and the medical decision-making described in the above note were completed with the assistance of the mid-level provider. I reviewed and agree with the findings presented. I attest that I had a [id number] encounter with the patient on the same day, and personally performed and documented my assessment and findings in the medical record. Pathology slides reviewed with Dr. Rodriguez. 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 She does not appear to be a surgical candidate with metastatic disease outside of the pelvis. I told her that the discussion regarding further therapy should be with gynecologic oncology and Dr. Shah. I contacted Dilcia Thompson who works with Dr. Shah. I asked her to arrange for someone from gynecologic oncology to speak with the patient and daughter regarding options which I suspect are hospice versus chemotherapy. Ultimately this decision will rest with Dr. Shah. At this point she can go home unless the plan is to give her chemotherapy and then it would be reasonable to keep her in the hospital to place a port and possibly begin therapy in the hospital. Both the patient and daughter were devastated with the news of incurable cancer. They are undecided and await input from Dr. Shah and group. Demetria Chery Oct 14, 2017 09:59 Marcell Justice MD Oct 14, 2017 18:38
[2017-10-14] MEDS ORDERED: METOPROLOL TARTRATE 25 MG TAB PO SCH (10:30)
[2017-10-14] MEDS ORDERED: METO25TA3 PO (11:02)
[2017-10-14] MEDS ORDERED: Lactulose Liq PO (11:02)
--- NOTE | 2017-10-14 11:04 | HHI.DCPOC ---
Discharge Care Plan Diagnosis: (1) Pelvic mass (2) Post-menopausal bleeding (3) Hypertensive urgency (4) Abdominal pain Goals to Promote Your Health * To prevent worsening of your condition and complications * To maintain your health at the optimal level Directions to Meet Your Goals Take your medications as prescribed Follow your dietary instruction Follow activity as directed Keep your appointments as scheduled Take your immunizations and boosters as scheduled If your symptoms worsen call your PCP, if no PCP go to Urgent Care Center or Emergency Room Smoking is Dangerous to Your Health. Avoid second hand smoke Call the 24-hour hour crisis hotline for domestic abuse at Chiara Suero MD Oct 14, 2017 11:04
--- NOTE | 2017-10-14 11:05 | HHI.DS ---
Discharge Summary Admission Date Oct 09, 2017 at 16:17 Discharge Date: Oct 14, 2017 Admitting Diagnosis acute mass to the abdomen with mets, hydronephrosis, obstructed GI t (1) Pelvic mass ICD Code: R19.00 - Intra-abdominal and pelvic swelling, mass and lump, unspecified site Diagnosis: Principal Status: Acute (2) Abdominal pain ICD Code: R10.9 - Unspecified abdominal pain Diagnosis: Principal (3) Hypertensive urgency ICD Code: I16.0 - Hypertensive urgency Diagnosis: Secondary (4) Post-menopausal bleeding ICD Code: N95.0 - Postmenopausal bleeding Diagnosis: Secondary (5) Leukocytosis ICD Code: D72.829 - Elevated white blood cell count, unspecified Diagnosis: Secondary Status: Acute Procedures Liver biopsy Brief History - From Admission HPI from the admitting physician 72-year-old female with PMH significant for HTN who presents to the ED with complaints of constipation, abdominal pain and poor appetite since the beginning of September. Patient is seen and examined in ED with daughter at bedside. Patient reports that the pain is located in her lower abdomen and rates this pain 10/10 describes it as a dull pain that is on and off, movement will make pain worse, nothing makes pain better. She has not tried anything to help alleviate this pain. Reports poor appetite, but has been able to drink with no issues, has not had a BM since September, she is not passing gas either per patient. She has not noticed and abdominal distention or enlargement, denies any weight gain or loss. She has been urinating with no issues, denies dysuria or hematuria. She does report postmenopausal bleeding that has been ongoing, she is unable to states for how long. She endorses night sweats, denies any dizziness, lightheadedness, SOB, cough, or chest pain. She was previously seen by [facility], however the last time she was seen by them was in March of 2017, she was on BP medication then however wanted to try natural remedies therefore discontinued her prescription medications. CBC/BMP: 10/14/17 0553 10/13/17 1038 Significant Findings Laboratory Tests Test 10/12/17 05:19 10/13/17 10:38 10/14/17 05:53 White Blood Count 15.1 TH/MM3 (4.0-11.0) 15.8 TH/MM3 (4.0-11.0) 13.0 TH/MM3 (4.0-11.0) Red Blood Count 3.91 MIL/MM3 (4.00-5.30) Hemoglobin 7.6 GM/DL (11.6-15.3) 8.4 GM/DL (11.6-15.3) 8.0 GM/DL (11.6-15.3) Hematocrit 25.2 % (35.0-46.0) 28.0 % (35.0-46.0) 26.5 % (35.0-46.0) Mean Corpuscular Volume 64.4 FL (80.0-100.0) 65.2 FL (80.0-100.0) 64.3 FL (80.0-100.0) Mean Corpuscular Hemoglobin 19.5 PG (27.0-34.0) 19.5 PG (27.0-34.0) 19.5 PG (27.0-34.0) Mean Corpuscular Hemoglobin Concent 30.3 % (32.0-36.0) 29.8 % (32.0-36.0) 30.3 % (32.0-36.0) Red Cell Distribution Width 24.2 % (11.6-17.2) 24.1 % (11.6-17.2) 24.2 % (11.6-17.2) Platelet Count 503 TH/MM3 (150-450) 512 TH/MM3 (150-450) 496 TH/MM3 (150-450) Creatinine 1.09 MG/DL (0.50-1.00) 1.08 MG/DL (0.50-1.00) Estimat Glomerular Filtration Rate 59 ML/MIN (>89) 60 ML/MIN (>89) Neutrophils (%) (Auto) 84.9 % (16.0-70.0) Lymphocytes (%) (Auto) 8.2 % (9.0-44.0) Neutrophils # (Auto) 13.5 TH/MM3 (1.8-7.7) Monocytes # (Auto) 1.0 TH/MM3 (0-0.9) Random Glucose 131 MG/DL (74-106) Imaging Last Impressions Liver Biopsy CT 10/11/17 0000 Signed Impressions: CONCLUSION: 1. 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 Abdomen/Pelvis CT 10/09/17 1210 Signed Impressions: CONCLUSION: 1. 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 Questionable bony metastasis lower tho racic spine. 2. Mild bilateral hydronephrosis likely related to the pelvic mass. There is s ome free fluid in the pelvis. Chest CT 10/09/17 0000 Signed Impressions: CONCLUSION: 1. Pulmonary parenchymal metastatic disease. No adenopathy or effusion. PE at Discharge GENERAL: Elderly female, in no apparent distress. CARDIOVASCULAR: Normal rate and regular rhythm without murmurs, gallops, or rubs. RESPIRATORY: Good respiratory efforts. Breath sounds equal and clear to auscultation bilaterally. GASTROINTESTINAL: Abdomen with apparent large firm mass in the suprapubic region. Tender to palpation MUSCULOSKELETAL: Extremities without cyanosis, or edema. NEURO: Alert & Oriented x4 to person, place, time, situation. Moves all ext x4 PSYCH: Appropriate mood and affect. Pt update on day of discharge Patient denies any pain. Discussed with daughter at length. They want to go home. States she will follow-up outpatient with Dr. Shah. They understand the preliminary results of the pathology indicates a malignancy but we do not have confirmation. Hospital Course 72-year-old -[place] female admitted secondary to pelvic mass and bleeding with anemia Acute blood loss anemia Patient has been having postmenopausal bleeding. She received 1 unit of PRBC transfusion. Hemoglobin stabilized. She still has scant vaginal bleeding and may need further transfusion outpatient. She is to follow-up with her PCP and [facility] Pelvic mass Abdominal pain Constipation Oncology following. Status post biopsy. Preliminary path indicates a malignancy. Patient and family opted to go home to follow-up outpatient with [facility] for further discussion on treatment plans. For now they are leaning toward going forward with treatment. [facility], Dr. Shah following. Planning for pelvic exam in the future. -Constipation secondary to large pelvic mass. Patient to stay on Lactulose. Acute kidney injury Hydronephrosis secondary to obstruction from pelvic mass. Renal functions improved and stabilized. This will need to be followed outpatient. Leukocytosis Fever No clear source of infection. Has been on Rocephin. Antibiotics discontinued. Fever resolved. Hypertensive urgency Improved The patient was started on Norvasc and metoprolol. Blood pressure improved. She is advised to follow-up outpatient with PCP. Pt Condition on Discharge: Stable Discharge Disposition: Discharge Home Discharge Time: <= 30 minutes Discharge Instructions DIET: Follow Instructions for: Heart Healthy Diet Activities you can perform: Regular-No Restrictions Follow up Referrals: [facility] - 2-3 Days with Lynn Shah MD New Medications: Amlodipine (Norvasc) 10 Mg Tab 10 MG PO DAILY, #30 TAB Metoprolol Tartrate (Metoprolol Tartrate) 25 Mg Tab 25 MG PO Q12HR, #60 TAB [Lactulose Liq] () 30 ML SYRP 30 ML PO DAILY for 30 Days Chiara Suero MD Oct 14, 2017 11:05
== END 2017-10-14 12:19 | disposition home or self-care (01) | DRG 375 ==
LOC: NEPE 11:58 → NEDA 16:17 → HCIN 18:26
PROVIDERS: ADMIT Family Medicine; ATTEND Family Medicine
PROC: 30233N1 Transfusion of Nonautologous Red Blood Cells into Peripheral Vein, Percutaneous Approach (ICD-10-PCS; 2017-10-10)
PROC: 0FB13ZX Excision of Right Lobe Liver, Percutaneous Approach, Diagnostic (ICD-10-PCS; principal; 2017-10-11)
DX: C78.6 Secondary malignant neoplasm of retroperitoneum and peritoneum (principal); C78.7 Secondary malignant neoplasm of liver and intrahepatic bile duct; N17.9 Acute kidney failure, unspecified; N13.30 Unspecified hydronephrosis; C78.01 Secondary malignant neoplasm of right lung; C78.02 Secondary malignant neoplasm of left lung; D62 Acute posthemorrhagic anemia; N39.0 Urinary tract infection, site not specified; R19.00 Intra-abdominal and pelvic swelling, mass and lump, unspecified site; I10 Essential (primary) hypertension; K59.00 Constipation, unspecified; R59.0 Localized enlarged lymph nodes; I16.0 Hypertensive urgency; N95.0 Postmenopausal bleeding; R61 Generalized hyperhidrosis; R79.89 Other specified abnormal findings of blood chemistry; R00.0 Tachycardia, unspecified; D56.9 Thalassemia, unspecified; R63.0 Anorexia; D72.829 Elevated white blood cell count, unspecified; Z91.14 Patient's other noncompliance with medication regimen
CPT/HCPCS: 36430; 47000; 71250; 74177; 76937; 77012; 80048; 80053; 81001; 82272; 82378; 82728; 83540; 83550; 83605; 83690; 85025; 85027; 85610; 85730; 86304; 86850; 86900; 86901; 86920; 87040; 88307; 88341; 88342; 93005; 96361; 96374; 96375; 99151; 99153; J0696; J1644; J1756; J2250; J2270; J2405; J2765; J3010; J7030; J7050; P9016; Q9967